=== PATIENT | male | born 1990 | race Caucasian/White ===

== ENCOUNTER 2021-10-04 22:38 | Observation (INO) ==
[2021-10-05] MEDS ORDERED: dexAMETHasone 6 MG in SYRINGE 0 ML IV ONE (00:41)
[2021-10-05] MEDS ORDERED: ACETAMINOPHEN 1,000 MG/100 ML VIAL IV STA (00:41)
[2021-10-05] MEDS ORDERED: SODIUM CHLORIDE 0.9% 1000ML 1,000 ML IV STA (00:41)
[2021-10-05] MEDS ORDERED: ALBUT/IPRATROP 3MG/0.5MG NEB 3 ML VIAL NEB STA (00:41)
[2021-10-05] MEDS ORDERED: DEXAMETHASONE SOD INJ 4 MG/ML VIAL ONE (01:39)
[2021-10-05 01:43] LABS: Mean Corpuscular Hgb Conc 32.9 g/dL (32-36)
[2021-10-05 01:50] LABS: Hematocrit (blood only) 41.9 % (42-52); Hemoglobin 13.8 g/dL (14.0-18.0); Mean Corpuscular Hemoglobin 22.6 pg (25-34); Mean Corpuscular Volume 68.7 fL (80-100); RDW Coefficient of Variation 14.2 % (11.5-14.5); RDW Standard Deviation 35.3 fL (36.4-46.3); White Blood Count 1.73 K/uL (4.8-10.8)
[2021-10-05 02:02] LABS: Alanine Aminotransferase 55 (12-78); Albumin Level 3.4 gm/dl (3.4-5.0); Aspartate Aminotransferase 36 U/L (15-37); BUN Creatinine Ratio 15.4 (10-20); Blood Urea Nitrogen 16 mg/dl (7-18); Calcium 8.3 mg/dl (8.5-10.1); Carbon Dioxide 24 mmol/L (21-32); Chloride 108 mmol/L (98-107); Creatinine Clr Calc Pharmacy 111.8 ml/min; Est GFR (Non-African American) 97.5 ml/min; Glucose 107 mg/dl (70-99); Potassium 3.9 mmol/L (3.5-5.1); Sodium 137 mmol/L (136-145)
[2021-10-05 02:03] LABS: Basophils # (auto) 0.01 K/uL (0-0.2); Basophils % (auto) 0.6 %; Eosinophils # (auto) 0.01 K/uL (0-0.5); Eosinophils % (auto) 0.6 %; Immature Granulocytes # (auto) 0.01 K/uL (0.00-0.02); Immature Granulocytes % (auto) 0.6 %; Lymphocytes # (auto) 0.56 K/uL (1.2-3.4); Lymphocytes % (auto) 32.4 %; Monocytes # (auto) 0.31 K/uL (0.11-0.59); Monocytes % (auto) 17.9 %; Neutrophils # (auto) 0.83 K/uL (1.4-6.5); Neutrophils % (auto) 47.9 %; Platelet Count 111 K/uL (130-400)
[2021-10-05 02:04] LABS: Microcytosis Present; Platelet Estimate Decreased (Normal)
[2021-10-05 02:07] LABS: Alkaline Phosphatase 66 U/L (45-117); Bilirubin,Total 0.2 mg/dl (0.2-1); C Reactive Protein 2.52 mg/dl (0-0.29); Globulin 3.5 gm/dl (2.5-4.0); Total Protein 6.9 gm/dl (6.4-8.2); Troponin I < 0.015 ng/ml (0-0.045)
[2021-10-05] MEDS ORDERED: SODIUM CHLORIDE 0.9% 1000ML 1,000 ML IV SCH ×2 (03:30→07:02)
[2021-10-05 04:12] LABS: Influenza A virus by PCR Negative (Neg); Influenza B virus by PCR Negative (Neg); RSV by PCR Negative (Neg)
[2021-10-05 04:27] LABS: SARS CoV2 RNA(COVID-19) InHosp POSITIVE (Negative)
[2021-10-05] MEDS ORDERED: LEVALBUTEROL HCL 1.25 MG/3 ML NEB NEB PRN (07:02)
[2021-10-05] MEDS ORDERED: guaiFENesin/CODEINE 100MG/10MG 5ML UDC PO PRN (07:02)
[2021-10-05] MEDS ORDERED: ACETAMINOPHEN 325 MG TAB PO PRN (07:02)
--- NOTE | 2021-10-05 07:47 | XRay Report ---
XR chest 1V portable HISTORY: Covid positive. Fever COMPARISON: Chest 11/02/2015. FINDINGS: No pneumothorax. No pleural effusions. The heart is normal in size. There are low lung volu mes. Patchy bilateral airspace opacities, left greater the right consistent with a multifocal viral p neumonia. IMPRESSION: Bilateral patchy airspace opacities, left greater than right consistent with a multifocal viral pneum onia. ACT 112: Negative or not required by law. Electronically signed by: Moreno Porras M.D. 10/05/2021 7:45 AM
[2021-10-05] MEDS: ENOXAPARIN INJ 40 MG/0.4 ML SYR SQ SCH (08:08)
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
[2021-10-05 08:30] LABS: Appearance Urine Clear (Clear); Bilirubin Urine Negative (Negative); Blood Urine Negative (Negative); Color Urine Yellow; Glucose Urine UA Trace (Negative); Ketones Urine Negative (Negative); Leukocyte Esterase Urine Negative (Negative); Nitrite Urine Negative (Negative); Protein Urine Negative (Negative); Specific Gravity Urine 1.019 (1.000-1.030); Urobilinogen Urine Negative (Negative); pH Urine 5.5 (4.5-7.5)
[2021-10-05] MEDS: BENZONATATE 100 MG CAPSULE PO SCH ×3 (09:30→23:41)
[2021-10-05 12:54] LABS: Hematocrit (blood only) 42.6 % (42-52); Hemoglobin 13.8 g/dL (14.0-18.0); Mean Corpuscular Hemoglobin 22.3 pg (25-34); Mean Corpuscular Hgb Conc 32.4 g/dL (32-36); Mean Corpuscular Volume 68.8 fL (80-100); Mean Platelet Volume 10.9 fL (7.4-10.4); Platelet Count 129 K/uL (130-400); RDW Coefficient of Variation 14.4 % (11.5-14.5); RDW Standard Deviation 35.8 fL (36.4-46.3); Red Blood Count 6.19 M/uL (4.7-6.1)
[2021-10-05 13:16] LABS: Lymphocytes # (auto) 0.28 K/uL (1.2-3.4); Lymphocytes % (auto) 25.5 %; Microcytosis Present; Monocytes # (auto) 0.18 K/uL (0.11-0.59); Monocytes % (auto) 16.4 %; Neutrophils # (auto) 0.64 K/uL (1.4-6.5); Neutrophils % (auto) 58.1 %
[2021-10-05 13:27] LABS: BUN Creatinine Ratio 13.3 (10-20); Calcium 8.2 mg/dl (8.5-10.1); Creatinine Clr Calc Pharmacy 128.1 ml/min; Est GFR (African American) 132.1 ml/min; Est GFR (Non-African American) 113.9 ml/min; Potassium 4.9 mmol/L (3.5-5.1)
[2021-10-05] MEDS ORDERED: CONSULT PHARMACY STA ×2 (16:25→16:58)
[2021-10-05] MEDS: CEFEPIME 2,000 MG in SYRINGE 0 ML IV SCH (17:34)
[2021-10-05] MEDS ORDERED: VANCOMYCIN CONSULT ACTIVE PRN (17:40)
[2021-10-05] MEDS ORDERED: VANCOMYCIN HCL 2,000 MG in SODIUM CHLORIDE 0.9% 500 ML IV ONE (17:45)
--- NOTE | 2021-10-05 17:59 | Hospitalist Progress Note ---
Date of Service October 05, 2021 Assessment & Plan (1) Pneumonia due to COVID-19 virus: Plan: Persistent fevers, elevated procalcitonin. Febrile neutropenia. Uncertain source of superimposed bacterial infection but this is a possibility. Cover empirically with broad-spectrum antibiotics including vancomycin and cefepime started today. We will hold on steroid therapy as patient is not hypoxic at this time. No indication for remdesivir therapy at this time. (2) Pancytopenia: Plan: Febrile neutropenia, slight anemia and thrombocytopenia present. Broad-spectrum antibiotics as above. Rule out major rickettsial illness etiologies including Lyme and Anaplasma. Patient is not a heavy alcohol user. May be caused by SARS-CoV-2 virus. Continue supportive therapies and monitor CBC. (3) DVT prophylaxis: Plan: Lovenox Full code Disposition-to home when medically stable [facility] and Anticipated Discharge Date Admission Date: October 05, 2021 Subjective 31-year-old man with febrile neutropenia positive for Covid, symptoms since 6 days ago. Was out hunting with father and brother who are also sick. Patient denies any GI upset, tolerating oral food. Intermittent high fevers, reported at home to be 104 Fahrenheit. He has been taking [id number] Motrin and Tylenol with some relief. Full skin exam performed with no evidence of rash or bites anywhere. He does not recall any bites while in the [place]. He denies any alcohol use. Coughing present with some shortness of breath. Review of Systems Review of Systems: All systems reviewed and negative except as indicated above. Physical Exam Physical Exam: CONSTITUTIONAL: WNWD, vitals as above, generally ill-appearing EYES: normal conjunctivae, no scleral icterus ENT: external ear and nose normal, MMM NECK: trachea midline RESPIRATORY: coarse rhonchi bilaterally, no rales or wheezes, normal respiratory effort, not requiring oxygen. CARDIOVASCULAR: regular rate and rhythm, S1 and 2 heard without murmurs, gallops or rubs, no JVD, no peripheral edema CHEST: inspection of chest was normal GASTROINTESTINAL: soft, nontender, no guarding, ND MUSCULOSKELETAL: strength 5/5 throughout, head is normocephalic and atraumatic SKIN: warm and dry, no rashes or bites NEUROLOGIC: CN 2-12 grossly intact, no sensory deficit, normal cognition, normal speech, no tremor, no gross focal deficits. PSYCHIATRIC: alert cooperative and oriented to person, place and time. Results & Data Results & Data ([facility]) Vital Signs (Past 12 Hours) Vital Signs Temp Pulse Pulse Resp BP BP Pulse Ox 10/05/21 15:38 37.8 C H 88 18 170/86 H 92 10/05/21 14:44 86 16 94 10/05/21 13:55 38 C H 18 157/89 H 93 10/05/21 08:15 36.8 C 10/05/21 07:02 72 20 126/80 97 10/05/21 07:00 20 126/80 96 10/05/21 06:37 60 22 122/74 94 Laboratory Results Short CBC 10/05/21 10/05/21 Range/Units 01:30 12:47 WBC 1.73 L 1.10 L (4.8-10.8) K/uL Hgb 13.8 L 13.8 L (14.0-18.0) g/dL Hct 41.9 L 42.6 (42-52) % Plt Count 111 L 129 L (130-400) K/uL BMP 10/05/21 10/05/21 01:30 12:47 Sodium 137 141 Potassium 3.9 4.9 D Chloride 108 H 111 H Carbon Dioxide 24 26 BUN 16 12 Creatinine 1.02 0.89 Glucose 107 H 135 H Calcium 8.3 L 8.2 L Cardiac Enzymes 10/05/21 Range/Units 01:30 Troponin I < 0.015 (0-0.045) ng/ml Liver Function 10/05/21 Range/Units 01:30 Total Bilirubin 0.2 (0.2-1) mg/dl AST 36 (15-37) U/L ALT 55 (12-78) Alkaline Phosphatase 66 (45-117) U/L Albumin 3.4 (3.4-5.0) gm/dl Urine 10/05/21 Range/Units 08:16 Urine Color Yellow Urine Appearance Clear (Clear) Urine pH 5.5 (4.5-7.5) Ur Specific Bedias 1.019 (1.000-1.030) Urine Protein Negative (Negative) Urine Glucose (UA) Trace H (Negative) Diagnostic Findings Chest X-Ray 10/05/21 00:41 XR chest 1V portable HISTORY: Covid positive. Fever COMPARISON: Chest 11/02/2015. FINDINGS: No pneumothorax. No pleural effusions. The heart is normal in size. There are low lung volumes. Patchy bilateral airspace opacities, left greater the right consistent with a multifocal viral pneumonia. IMPRESSION: Bilateral patchy airspace opacities, left greater than right consistent with a multifocal viral pneumonia. ACT 112: Negative or not required by law. Electronically signed by: Moreno Porras M.D. 10/05/2021 7:45 AM Medications Administered Current Inpatient Medications Acetaminophen (Acetaminophen 325 Mg Tab) 650 mg PO Q4H PRN PRN Reason: pain/fever Stop: 11/04/21 07:01 Last Admin: 10/05/21 13:25 Dose: 650 mg Documented by: Benzonatate (Benzonatate 100 Mg Capsule) 100 mg PO TID [facility] Stop: 11/04/21 08:59 Last Admin: 10/05/21 14:13 Dose: 100 mg Documented by: Enoxaparin Sodium (Enoxaparin Inj 40 Mg/0.4 Ml Syr) 40 mg SQ Q24H [facility] Stop: 11/04/21 07:59 Last Admin: 10/05/21 08:08 Dose: 40 mg Documented by: Guaifenesin/Codeine Phosphate (Guaifenesin/Codeine 100mg/10mg 5ml Udc) 5 ml PO Q6H PRN PRN Reason: Cough Stop: 11/04/21 07:01 Last Admin: 10/05/21 13:25 Dose: 5 ml Documented by: Dexamethasone 6 mg/ Syringe 1.5 mls @ 1 mls/min IV Q24H [facility] Stop: 11/04/21 20:59 Cefepime HCl 2,000 mg/ Syringe 20 mls @ 5 mls/min IV Q8H [facility]; Protocol Stop: 10/12/21 16:59 Last Admin: 10/05/21 17:34 Dose: 5 mls/min Documented by: Vancomycin HCl 2,000 mg/ (Sodium Chloride) 540 mls @ 200 mls/hr IV ONE ONE Stop: 10/05/21 20:26 Last Admin: 10/05/21 17:56 Dose: 200 mls/hr Documented by: Levalbuterol HCl (Levalbuterol Hcl 1.25 Mg/3 Ml Neb) 1.25 mg NEB Q4H PRN PRN Reason: Shortness Of Breath Or Wheezing Stop: 11/04/21 07:01 Last Admin: 10/05/21 14:44 Dose: 1.25 mg Documented by: Miscellaneous Information (Vancomycin Consult Active) 1 ea N/A UD PRN PRN Reason: Consult Stop: 11/04/21 17:39
[2021-10-05] MEDS ORDERED: D5W AND 1/2NSS 1,000 ML IV SCH (19:30)
[2021-10-05] MEDS ORDERED: dexAMETHasone 6 MG in SYRINGE 0 ML IV SCH (21:00)
[2021-10-05] MEDS: IBUPROFEN 800 MG TAB PO SCH (21:10)
[2021-10-05 21:38] LABS: Lyme Ab IgG w/WB Rflx Negative (Negative); Lyme Ab IgM w/WB Rflx Negative (Negative)
[2021-10-05] MEDS: ACETAMINOPHEN 500 MG TAB PO SCH (23:41)
[2021-10-06] MEDS: CEFEPIME 2,000 MG in SYRINGE 0 ML IV SCH ×3 (01:34→17:21)
[2021-10-06] MEDS: IBUPROFEN 800 MG TAB PO SCH ×3 (03:51→17:21)
--- NOTE | 2021-10-06 04:51 | Emergency Department Note ---
Impression & Plan Pneumonia due to COVID-19 virus, Pancytopenia ED Provider Note CHIEF COMPLAINT: Covid positive, fevers, chills, body aches HISTORY OF PRESENT ILLNESS: This 31-year-old male patient presents to the emergency department with complaints of body aches, chills cough. Patient states he is known to be Covid positive as he tested at the local [facility] several days ago. He thinks his symptoms started about a week ago. He is not Covid vaccinated. Patient has been using Tylenol for his fevers. He has had a decreased p.o. intake due to nausea. He denies any significant chest pain but does admit to mild headache. REVIEW OF SYSTEMS: A review of systems was performed with positives and pert inent negatives listed in the history of present illness. 10 systems were reviewed and are otherwise negative. ALLERGIES: see below MEDICATIONS: see below PMH: see below SOCIAL HISTORY: see below DDx: Viral syndrome, COVID, otitis, pharyngitis, pneumonia, influenza, meningitis, urinary tract infection, sepsis, bacteremia, as well as other pathologies. PHYSICAL EXAM: Vital signs reviewed. General: Somewhat ill-appearing 31-year-old male, in no significant distress. HEENT: No scleral icterus, PERRLA, neck supple. Dry mucous membranes Cardiovascular: Regular rate and rhythm, no extra sounds. Pulmonary: Clear to auscultation bilaterally, normal work of breathing. Abdomen: Soft, nontender, nondistended, positive bowel sounds. Musculoskeletal: Atraumatic, no peripheral edema. Neurologic: Patient awake alert and oriented x 3, speech is clear, no meningeal signs Skin: Warm, diaphoretic, no rash EMERGENCY DEPARTMENT COURSE/MDM: This patient was evaluated and appeared to be in no significant distress. IV access was obtained and laboratory work was drawn. Patient was placed on a ekg monitor and noted to be in normal sinus rhythm. Patient was hydrated with normal saline solution. Patient was given 1 g of Tylenol IV, DuoNeb treatment and 6 mg of IV dexamethasone. Chest x-ray is consistent with a viral pneumonitis. Laboratory work reveals a leukopenia, neutropenia, mild thrombocytopenia and anemia. Repeat Covid swab was performed as previous results were not obtainable. Study confirms Covid positive status. Given the pancytopenia, patient was discussed with the hospitalist service who will evaluate for further management. Patient is aware and agrees. MONITORING: An order for cardiac monitoring was placed and the patient is noted to be in a normal sinus rhythm at 78 beats per minute. RADIOLOGY: see below DISPOSITION:home Past Med/Surg History Social History Smoking Status: Never smoker Hx Alcohol Use: Yes Alcohol type: beer Hx Substance Use: No Communication Ability: Effective Beliefs That Will Affect Care: None marital status: Current Living Situation: Spouse Feels Safe at Home: Yes Safety Concerns: Feels Safe At This Time Assistive Devices: Glasses Allergies Allergies Allergy/AdvReac Type Severity Reaction Status Date / Time No Known Allergies Allergy Unverified 10/05/21 00:06 Home Meds Home Medications Medication Instructions Recorded Confirmed No Known Home Medications 10/05/21 10/05/21 Results & Data (ED) Home Medications Current Medication List: was personally reviewed by me Laboratory Data Attestation: I reviewed the patient's lab results. Result diagrams: 10/06/21 06:46 10/06/21 06:46 Lab Results 10/05/21 10/05/21 10/05/21 Range/Units 01:30 01:30 01:30 WBC 1.73 L (4.8-10.8) K/uL RBC 6.10 (4.7-6.1) M/uL Hgb 13.8 L (14.0-18.0) g/dL Hct 41.9 L (42-52) % MCV 68.7 L (80-100) fL MCH 22.6 L (25-34) pg MCHC 32.9 (32-36) g/dL RDW Std Deviation 35.3 L (36.4-46.3) fL RDW Coeff of Ez 14.2 (11.5-14.5) % Plt Count 111 L (130-400) K/uL Immature Gran % (Auto) 0.6 % Neut % (Auto) 47.9 % Lymph % (Auto) 32.4 % Med[place] % (Auto) 17.9 % Eos % (Auto) 0.6 % Baso % (Auto) 0.6 % Neut # (Auto) 0.83 L* (1.4-6.5) K/uL Lymph # (Auto) 0.56 L (1.2-3.4) K/uL [place] # (Auto) 0.31 (0.11-0.59) K/uL Eos # (Auto) 0.01 (0-0.5) K/uL Baso # (Auto) 0.01 (0-0.2) K/uL Immature Gran # (Auto) 0.01 (0.00-0.02) K/uL Platelet Estimate Decreased L (Normal) Microcytosis Present Sodium 137 (136-145) mmol/L Potassium 3.9 (3.5-5.1) mmol/L Chloride 108 H (98-107) mmol/L Carbon Dioxide 24 (21-32) mmol/L Anion Gap 5.0 (3-11) BUN 16 (7-18) mg/dl Creatinine 1.02 (0.6-1.4) mg/dl Est Cr Clr Drug Dosing 111.8 ml/min Est GFR ( Amer) 113.0 ml/min Est GFR (Non-Af Amer) 97.5 ml/min BUN/Creatinine Ratio 15.4 (10-20) Glucose 107 H (70-99) mg/dl Lactate 0.7 (0.4-2.0) mmol/L Calcium 8.3 L (8.5-10.1) mg/dl Total Bilirubin 0.2 (0.2-1) mg/dl AST 36 (15-37) U/L ALT 55 (12-78) Alkaline Phosphatase 66 (45-117) U/L Troponin I < 0.015 (0-0.045) ng/ml C-Reactive Protein 2.52 H (0-0.29) mg/dl Total Protein 6.9 (6.4-8.2) gm/dl Albumin 3.4 (3.4-5.0) gm/dl Globulin 3.5 (2.5-4.0) gm/dl Albumin/Globulin Ratio 1.0 (0.9-2) Procalcitonin (0-0.5) ng/ml Lyme Disease IgG Ab (Negative) Lyme Disease IgM Ab (Negative) SARS-CoV-2 (PCR) (Negative) Influenza Type A (PCR) (Neg) Influenza Type B (PCR) (Neg) RSV (RT-PCR) (Neg) 10/05/21 10/05/21 10/05/21 Range/Units 01:30 01:30 03:18 WBC (4.8-10.8) K/uL RBC (4.7-6.1) M/uL Hgb (14.0-18.0) g/dL Hct (42-52) % MCV (80-100) fL MCH (25-34) pg MCHC (32-36) g/dL RDW Std Deviation (36.4-46.3) fL RDW Coeff of Ez (11.5-14.5) % Plt Count (130-400) K/uL Immature Gran % (Auto) % Neut % (Auto) % Lymph % (Auto) % Med[place] % (Auto) % Eos % (Auto) % Baso % (Auto) % Neut # (Auto) (1.4-6.5) K/uL Lymph # (Auto) (1.2-3.4) K/uL [place] # (Auto) (0.11-0.59) K/uL Eos # (Auto) (0-0.5) K/uL Baso # (Auto) (0-0.2) K/uL Immature Gran # (Auto) (0.00-0.02) K/uL Platelet Estimate (Normal) Microcytosis Sodium (136-145) mmol/L Potassium (3.5-5.1) mmol/L Chloride (98-107) mmol/L Carbon Dioxide (21-32) mmol/L Anion Gap (3-11) BUN (7-18) mg/dl Creatinine (0.6-1.4) mg/dl Est Cr Clr Drug Dosing ml/min Est GFR ( Amer) ml/min Est GFR (Non-Af Amer) ml/min BUN/Creatinine Ratio (10-20) Glucose (70-99) mg/dl Lactate (0.4-2.0) mmol/L Calcium (8.5-10.1) mg/dl Total Bilirubin (0.2-1) mg/dl AST (15-37) U/L ALT (12-78) Alkaline Phosphatase (45-117) U/L Troponin I (0-0.045) ng/ml C-Reactive Protein (0-0.29) mg/dl Total Protein (6.4-8.2) gm/dl Albumin (3.4-5.0) gm/dl Globulin (2.5-4.0) gm/dl Albumin/Globulin Ratio (0.9-2) Procalcitonin 0.17 (0-0.5) ng/ml Lyme Disease IgG Ab Negative (Negative) Lyme Disease IgM Ab Negative (Negative) SARS-CoV-2 (PCR) POSITIVE A* (Negative) Influenza Type A (PCR) Negative (Neg) Influenza Type B (PCR) Negative (Neg) RSV (RT-PCR) Negative (Neg) Administered Medications Acetaminophen (Acetaminophen 500 Mg Tab) 1,000 mg PO Q8H [facility] Stop: 11/04/21 21:59 Last Admin: 10/06/21 14:33 Dose: 1,000 mg Documented by: [id number] Admin: 10/06/21 06:15 Dose: 1,000 mg Documented by: [id number] Admin: 10/05/21 23:41 Dose: 1,000 mg Documented by: [id number] Benzonatate (Benzonatate 100 Mg Capsule) 100 mg PO TID [facility] Stop: 11/04/21 08:59 Last Admin: 10/06/21 13:34 Dose: 100 mg Documented by: [id number] Admin: 10/06/21 08:07 Dose: 100 mg Documented by: [id number] Admin: 10/05/21 23:41 Dose: 100 mg Documented by: [id number] Admin: 10/05/21 14:13 Dose: 100 mg Documented by: [id number] Admin: 10/05/21 09:30 Dose: 100 mg Documented by: [id number] Enoxaparin Sodium (Enoxaparin Inj 40 Mg/0.4 Ml Syr) 40 mg SQ Q24H [facility] Stop: 11/04/21 07:59 Last Admin: 10/06/21 08:07 Dose: 40 mg Documented by: [id number] Admin: 10/05/21 08:08 Dose: 40 mg Documented by: [id number] Guaifenesin/Codeine Phosphate (Guaifenesin/Codeine 100mg/10mg 5ml Udc) 10 ml PO Q6H PRN PRN Reason: Cough Stop: 11/04/21 07:01 Last Admin: 10/06/21 20:08 Dose: 10 ml Documented by: [id number] Admin: 10/06/21 10:49 Dose: 10 ml Documented by: [id number] Cefepime HCl 2,000 mg/ Syringe 20 mls @ 5 mls/min IV Q8H [facility]; Protocol Stop: 10/12/21 16:59 Last Admin: 10/06/21 17:21 Dose: 5 mls/min Documented by: [id number] Admin: 10/06/21 08:07 Dose: 5 mls/min Documented by: [id number] Admin: 10/06/21 01:34 Dose: 5 mls/min Documented by: [id number] Admin: 10/05/21 17:34 Dose: 5 mls/min Documented by: [id number] Vancomycin HCl 1,500 mg/ (Sodium Chloride) 530 mls @ 200 mls/hr IV Q12H [facility]; Protocol Stop: 10/13/21 04:59 Last Infusion: 10/06/21 19:52 Dose: 0 mls/hr Documented by: [id number] Admin: 10/06/21 17:13 Dose: 200 mls/hr Documented by: [id number] Infusion: 10/06/21 09:15 Dose: 0 mls/hr Documented by: [id number] Admin: 10/06/21 06:18 Dose: 200 mls/hr Documented by: [id number] Ibuprofen (Ibuprofen 800 Mg Tab) 800 mg PO Q8 [facility] Stop: 11/05/21 17:59 Last Admin: 10/06/21 17:21 Dose: 800 mg Documented by: [id number] Levalbuterol HCl (Levalbuterol Hcl 1.25 Mg/3 Ml Neb) 1.25 mg NEB Q4H PRN PRN Reason: Shortness Of Breath Or Wheezing Stop: 11/04/21 07:01 Last Admin: 10/05/21 14:44 Dose: 1.25 mg Documented by: [id number] Discontinued Medications Acetaminophen (Acetaminophen 325 Mg Tab) 650 mg PO Q4H PRN PRN Reason: pain/fever Stop: 11/04/21 07:01 Last Admin: 10/05/21 13:25 Dose: 650 mg Documented by: [id number] Albuterol (Albut/Ipratrop 3mg/0.5mg Neb 3 Ml Vial) 3 ml NEB NOW STA Stop: 10/05/21 00:42 Last Admin: 10/05/21 01:42 Dose: 3 ml Documented by: [id number] Dexamethasone (Dexamethasone Sod Inj 4 Mg/Ml Vial) Confirm Administered Dose 8 mg .ROUTE .STK-MED ONE Stop: 10/05/21 01:40 Last Admin: 10/05/21 01:42 Dose: Not Given Documented by: [id number] Guaifenesin/Codeine Phosphate (Guaifenesin/Codeine 100mg/10mg 5ml Udc) 5 ml PO Q6H PRN PRN Reason: Cough Stop: 11/04/21 07:01 Last Admin: 10/05/21 13:25 Dose: 5 ml Documented by: [id number] Guaifenesin/Codeine Phosphate (Guaifenesin/Codeine 200mg/20mg 10ml Udc) 10 ml PO ONE STA Stop: 10/05/21 19:16 Last Admin: 10/05/21 21:09 Dose: 10 ml Documented by: [id number] Sodium Chloride (Nss 1000ml) 1,000 mls @ 999 mls/hr IV .Q1H1M STA Stop: 10/05/21 01:41 Last Infusion: 10/05/21 02:45 Dose: 0 mls/hr Documented by: [id number] Admin: 10/05/21 01:42 Dose: 999 mls/hr Documented by: [id number] Acetaminophen (Ofirmev) 1,000 mg in 100 mls @ 400 mls/hr IV NOW STA Stop: 10/05/21 00:55 Last Infusion: 10/05/21 02:21 Dose: 0 mls/hr Documented by: [id number] Admin: 10/05/21 01:42 Dose: 400 mls/hr Documented by: [id number] Dexamethasone 6 mg/ Syringe 1.5 mls @ 1 mls/min IV ONE ONE Stop: 10/05/21 00:42 Last Admin: 10/05/21 01:41 Dose: 1 mls/min Documented by: [id number] Sodium Chloride (Nss 1000ml) 1,000 mls @ 150 mls/hr IV .Q6H40M [facility] Stop: 11/04/21 03:29 Last Infusion: 10/05/21 11:51 Dose: 0 mls/hr Documented by: [id number] Admin: 10/05/21 05:17 Dose: 150 mls/hr Documented by: [id number] Sodium Chloride (Nss 1000ml) 1,000 mls @ 100 mls/hr IV .Q10H [facility] Stop: 10/05/21 17:01 Last Infusion: 10/05/21 11:46 Dose: 0 mls/hr Documented by: [id number] Admin: 10/05/21 08:25 Dose: 100 mls/hr Documented by: [id number] Vancomycin HCl 2,000 mg/ (Sodium Chloride) 540 mls @ 200 mls/hr IV ONE ONE Stop: 10/05/21 20:26 Last Infusion: 10/05/21 21:12 Dose: 0 mls/hr Documented by: [id number] Admin: 10/05/21 17:56 Dose: 200 mls/hr Documented by: [id number] Dextrose/Sodium Chloride (D5w And 1/2nss) 1,000 mls @ 125 mls/hr IV .Q8H [facility] Stop: 10/06/21 03:29 Last Infusion: 10/06/21 04:06 Dose: 0 mls/hr Documented by: [id number] Admin: 10/05/21 21:12 Dose: 125 mls/hr Documented by: [id number] Ibuprofen (Ibuprofen 800 Mg Tab) 800 mg PO Q8H [facility] Stop: 11/04/21 19:29 Last Admin: 10/06/21 12:12 Dose: 800 mg Documented by: [id number] Admin: 10/06/21 03:51 Dose: 800 mg Documented by: [id number] Admin: 10/05/21 21:10 Dose: 800 mg Documented by: [id number] Imaging Data Radiologist's Impression: Chest X-Ray 10/05/21 00:41 XR chest 1V portable HISTORY: Covid positive. Fever COMPARISON: Chest 11/02/2015. FINDINGS: No pneumothorax. No pleural effusions. The heart is normal in size. There are low lung volumes. Patchy bilateral airspace opacities, left greater the right consistent with a multifocal viral pneumonia. IMPRESSION: Bilateral patchy airspace opacities, left greater than right consistent with a multifocal viral pneumonia. ACT 112: Negative or not required by law. Electronically signed by: Moreno Porras M.D. 10/05/2021 7:45 AM Blood Pressure Blood Pressure Findings: Normal blood pressure Blood Pressure Disposition: did not require urgent referral Discharge Plan Visit Data Chief Complaint: Fever Stated Complaint: COVID+, FEVER, COUGH, LOW PULSE OX ED Provider: Alisha Kebede Discharge Problem: Pneumonia due to COVID-19 virus, Pancytopenia Patient Disposition: Admitted As Inpatient Discharge Instructions Interventions: ED Discharge Assessment Last Done: 10/05/21 21:21
[2021-10-06 06:10] LABS: Estimated Average Glucose 131 mg/dl; Hemoglobin A1C 6.2 % (4.5-5.6)
[2021-10-06] MEDS: ACETAMINOPHEN 500 MG TAB PO SCH ×3 (06:15→21:41)
[2021-10-06] MEDS: VANCOMYCIN HCL 1,500 MG in SODIUM CHLORIDE 0.9% 500 ML IV SCH ×2 (06:18→17:13)
[2021-10-06 07:01] LABS: Basophils # (auto) 0.01 K/uL (0-0.2); Basophils % (auto) 0.3 %; Eosinophils # (auto) 0.01 K/uL (0-0.5); Eosinophils % (auto) 0.3 %; Hemoglobin 13.1 g/dL (14.0-18.0); Immature Granulocytes # (auto) 0.01 K/uL (0.00-0.02); Immature Granulocytes % (auto) 0.3 %; Lymphocytes # (auto) 0.64 K/uL (1.2-3.4); Lymphocytes % (auto) 18.4 %; Mean Corpuscular Hemoglobin 22.5 pg (25-34); Mean Corpuscular Hgb Conc 32.8 g/dL (32-36); Mean Corpuscular Volume 68.8 fL (80-100); Mean Platelet Volume 10.6 fL (7.4-10.4); Monocytes # (auto) 0.43 K/uL (0.11-0.59); Monocytes % (auto) 12.4 %; Neutrophils # (auto) 2.38 K/uL (1.4-6.5); Neutrophils % (auto) 68.3 %; Platelet Count 146 K/uL (130-400); RDW Coefficient of Variation 14.4 % (11.5-14.5); RDW Standard Deviation 36.1 fL (36.4-46.3); Red Blood Count 5.81 M/uL (4.7-6.1); White Blood Count 3.48 K/uL (4.8-10.8)
[2021-10-06 07:41] LABS: Microcytosis Present
[2021-10-06] MEDS: ENOXAPARIN INJ 40 MG/0.4 ML SYR SQ SCH (08:07)
[2021-10-06] MEDS: BENZONATATE 100 MG CAPSULE PO SCH ×3 (08:07→21:41)
[2021-10-06 08:10] LABS: BUN Creatinine Ratio 13.4 (10-20); Calcium 7.8 mg/dl (8.5-10.1); Creatinine Clr Calc Pharmacy 152.4 ml/min; Est GFR (African American) 136.6 ml/min; Est GFR (Non-African American) 117.8 ml/min; Magnesium 2.5 mg/dl (1.8-2.4)
--- NOTE | 2021-10-06 08:45 | Pharmacy Report ---
Pharmacy Vanc AUC Short Note - Date of Service October 06, 2021 - Assessment & Plan Assessment 31 year old M receiving IV Vancomycin and Cefepime (not a consult) for treatment of neutropenic fever/COVID pneumonia. Day # 2 of antimicrobial therapy. * No renal impairment noted and no hx MDRO; estimated CrCl >100 mL/min * Estimated pharmacokinetic parameters: * Ke ~0.087/hr, T1/2 ~8 hrs * He received Vancomycin 2000mg (~24mg/kg) IV x 1 as a loading dose yesterday Plan Vancomycin * AUC/KRISTIN is the preferred PK/PD target for vancomycin * AUC guided dosing is effective and associated with decreased risk of nephrotoxicity compared to traditional trough targets * According to [facility], Vancomycin 1500mg (~18mg/kg) IV q12 is predicted to achieve target AUC/KRISTIN of 400-600 mg/L.hr and may be associated with a 13 % risk of nephrotoxicity * Trough level ordered for: 10/07/21 @ 1630 to assess estimated pharmacokinetics; given his young age, he may require a more frequent dosing interval * Ordered MRSA nasal swab to assess for potential de-escalation Pharmacy will continue to follow and will adjust dose/frequency as necessary. Thank you.
[2021-10-06] MEDS: guaiFENesin/CODEINE 100MG/10MG 5ML UDC PO PRN ×2 (10:49→20:08)
--- NOTE | 2021-10-06 15:25 | Hospitalist Progress Note ---
Date of Service October 06, 2021 Assessment & Plan (1) Pneumonia due to COVID-19 virus: Plan: Persistent fevers, elevated procalcitonin. Febrile neutropenia. Uncertain source of superimposed bacterial infection but this is a possibility. Not on COVID specific therapy at this time. Currently on room air Reports symptoms worsen with fever but respond well to tylenol or ibuprofen. Will do the tylenol alternating with ibuprofen for fevers. Consider resending blood cultures if fever persists Continue broad spectrum antibiotics Continue supportive therapies (2) Pancytopenia: Plan: Febrile neutropenia, slight anemia and thrombocytopenia present. Broad-spectrum antibiotics as above. Rule out major rickettsial illness etiologies including Lyme and Anaplasma. Patient is not a heavy alcohol user. May be caused by SARS-CoV-2 virus. Thrombocytopenia resolved Leukopenia improved today Monitor (3) DVT prophylaxis: Plan: Lovenox Full code Disposition-to home when medically stable Admission and Anticipated Discharge Date Admission Date: October 05, 2021 Subjective Patient seen and examined. Reports fevers, persistent cough. Had headache and nausea earlier this morning. Denies any shortness of breath Reports some chest discomfort usually with coughing. Denies any vomiting, abdominal pain. Reported some diarrhea yesterday. Denied any dysuria, frequency, urgency Physical Exam Constitutional: + well hydrated; no acute distress Eyes: PERRL, conjunctivae normal, anicteric sclerae ENMT: external ear and nose normal, oropharynx normal Respiratory: normal respiratory effort, lungs clear to auscultation Cardiovascular: RRR, no murmur, no edema Gastrointestinal (Abdomen): normal bowel sounds, soft, nontender, no hepatosplenomegaly Musculoskeletal: no cyanosis or clubbing, extremities motor strength 5/5 Neurologic: PERRL, EOMI, accommodation nl, no face palsy, no dysarthria Psychiatric: A+Ox3, euthymic affect Results & Data Results & Data ([facility]) Vital Signs (Past 12 Hours) Vital Signs Temp Pulse Resp BP Pulse Ox 10/06/21 08:13 36.8 C 71 18 123/85 93 Laboratory Results Abnormal lab results 10/05/21 10/05/21 10/06/21 Range/Units 12:51 19:59 06:46 WBC 3.48 L (4.8-10.8) K/uL Hgb 13.1 L (14.0-18.0) g/dL Hct 40.0 L (42-52) % MCV 68.8 L (80-100) fL MCH 22.5 L (25-34) pg RDW Std Deviation 36.1 L (36.4-46.3) fL MPV 10.6 H (7.4-10.4) fL Lymph # (Auto) 0.64 L (1.2-3.4) K/uL Chloride (98-107) mmol/L Glucose (70-99) mg/dl Hemoglobin A1c 6.2 H (4.5-5.6) % Calcium (8.5-10.1) mg/dl Magnesium (1.8-2.4) mg/dl C-Reactive Protein 2.04 H (0-0.29) mg/dl 10/06/21 Range/Units 06:46 WBC (4.8-10.8) K/uL Hgb (14.0-18.0) g/dL Hct (42-52) % MCV (80-100) fL MCH (25-34) pg RDW Std Deviation (36.4-46.3) fL MPV (7.4-10.4) fL Lymph # (Auto) (1.2-3.4) K/uL Chloride 111 H (98-107) mmol/L Glucose 108 H (70-99) mg/dl Hemoglobin A1c (4.5-5.6) % Calcium 7.8 L (8.5-10.1) mg/dl Magnesium 2.5 H (1.8-2.4) mg/dl C-Reactive Protein (0-0.29) mg/dl
[2021-10-07] MEDS: CEFEPIME 2,000 MG in SYRINGE 0 ML IV SCH ×2 (00:56→08:21)
[2021-10-07] MEDS: IBUPROFEN 800 MG TAB PO SCH ×3 (03:26→21:50)
[2021-10-07] MEDS: guaiFENesin/CODEINE 100MG/10MG 5ML UDC PO PRN ×2 (04:17→22:44)
[2021-10-07] MEDS: VANCOMYCIN HCL 1,500 MG in SODIUM CHLORIDE 0.9% 500 ML IV SCH (05:09)
[2021-10-07] MEDS: ACETAMINOPHEN 500 MG TAB PO SCH ×4 (05:39→23:40)
[2021-10-07 07:25] LABS: Hematocrit (blood only) 39.4 % (42-52); Hemoglobin 12.7 g/dL (14.0-18.0); Mean Corpuscular Hemoglobin 22.2 pg (25-34); Mean Corpuscular Hgb Conc 32.2 g/dL (32-36); Mean Platelet Volume 10.2 fL (7.4-10.4); Platelet Count 141 K/uL (130-400); RDW Coefficient of Variation 14.5 % (11.5-14.5); RDW Standard Deviation 36.3 fL (36.4-46.3); Red Blood Count 5.71 M/uL (4.7-6.1); White Blood Count 3.13 K/uL (4.8-10.8)
[2021-10-07 08:02] LABS: BUN Creatinine Ratio 13.3 (10-20); C Reactive Protein 6.4 mg/dl (0-0.29); Calcium 7.9 mg/dl (8.5-10.1); Creatinine Clr Calc Pharmacy 134.4 ml/min; Est GFR (African American) 126.3 ml/min; Potassium 4.2 mmol/L (3.5-5.1)
[2021-10-07] MEDS: BENZONATATE 100 MG CAPSULE PO SCH ×3 (08:21→21:50)
[2021-10-07] MEDS: ENOXAPARIN INJ 40 MG/0.4 ML SYR SQ SCH (08:21)
[2021-10-07] MEDS ORDERED: COUGH DROP (SUGAR FREE) LOZ 24 LOZ/1 BOX BUCCAL ONE (09:10)
--- NOTE | 2021-10-07 14:18 | Hospitalist Progress Note ---
Date of Service October 07, 2021 Assessment & Plan (1) Pneumonia due to COVID-19 virus: Plan: Persistent fevers Febrile neutropenia. Not on COVID specific therapy at this time. Currently on room air Consider resending blood cultures if fever persists Blood cultures negative so far Procal still unremarkable at 0.16. My concern for bacterial infection is low at this time. Fevers likely from COVID Leukopenia improved. Stop antibiotics and monitor (2) Pancytopenia: Plan: Febrile neutropenia, slight anemia and thrombocytopenia present. Patient is not a heavy alcohol user. May be caused by SARS-CoV-2 virus. Lyme test negative. Anaplasmolsis pending Thrombocytopenia resolved Leukopenia improved Monitor (3) DVT prophylaxis: Plan: Lovenox Full code Disposition-to home when medically stable Admission and Anticipated Discharge Date Admission Date: October 05, 2021 Subjective Patient seen and examined. Report last fever was last night but not recorded. Last recorded fever was 10/05/21 at 9;39pm Reports persistent cough. Denies any shortness of breath Reports some chest discomfort usually with coughing. Denies any nausea, vomiting, abdominal pain today No diarrhea so far today Denied any dysuria, frequency, urgency Physical Exam Constitutional: + well hydrated; no acute distress Eyes: PERRL, conjunctivae normal, anicteric sclerae ENMT: external ear and nose normal, oropharynx normal Respiratory: normal respiratory effort, lungs clear to auscultation Cardiovascular: RRR, no murmur, no edema Gastrointestinal (Abdomen): normal bowel sounds, soft, nontender, no hepatosplenomegaly Musculoskeletal: no cyanosis or clubbing, extremities motor strength 5/5 Neurologic: PERRL, EOMI, accommodation nl, no face palsy, no dysarthria Psychiatric: A+Ox3, euthymic affect Results & Data Results & Data ([facility]) Vital Signs (Past 12 Hours) Vital Signs Temp Pulse Resp BP Pulse Ox 10/07/21 07:16 37.3 C 81 18 113/70 91 10/07/21 05:31 85 91 Laboratory Results Abnormal lab results 10/07/21 10/07/21 Range/Units 07:10 07:10 WBC 3.13 L (4.8-10.8) K/uL Hgb 12.7 L (14.0-18.0) g/dL Hct 39.4 L (42-52) % MCV 69.0 L (80-100) fL MCH 22.2 L (25-34) pg RDW Std Deviation 36.3 L (36.4-46.3) fL Chloride 108 H (98-107) mmol/L Calcium 7.9 L (8.5-10.1) mg/dl C-Reactive Protein 6.40 H (0-0.29) mg/dl
[2021-10-07] MEDS ORDERED: VANCOMYCIN TROUGH ONE (16:30)
[2021-10-08] MEDS: guaiFENesin/CODEINE 100MG/10MG 5ML UDC PO PRN (06:00)
[2021-10-08] MEDS: IBUPROFEN 800 MG TAB PO SCH (06:00)
[2021-10-08 06:39] LABS: Hematocrit (blood only) 42.1 % (42-52); Hemoglobin 13.7 g/dL (14.0-18.0); Mean Corpuscular Hemoglobin 22.5 pg (25-34); Mean Corpuscular Hgb Conc 32.5 g/dL (32-36); Mean Platelet Volume 10.7 fL (7.4-10.4); Platelet Count 201 K/uL (130-400); RDW Coefficient of Variation 14.6 % (11.5-14.5); RDW Standard Deviation 36.4 fL (36.4-46.3); White Blood Count 3.17 K/uL (4.8-10.8)
[2021-10-08 07:11] LABS: Calcium 8.7 mg/dl (8.5-10.1); Creatinine Clr Calc Pharmacy 148.8 ml/min; Est GFR (African American) 135.2 ml/min; Est GFR (Non-African American) 116.7 ml/min; Potassium 4.2 mmol/L (3.5-5.1)
[2021-10-08] MEDS: ACETAMINOPHEN 500 MG TAB PO SCH (09:17)
[2021-10-08] MEDS: BENZONATATE 100 MG CAPSULE PO SCH ×2 (09:17→14:01)
[2021-10-08] MEDS: ENOXAPARIN INJ 40 MG/0.4 ML SYR SQ SCH (09:18)
[2021-10-08] MEDS ORDERED: IBUPROFEN 800 MG TAB PO PRN (11:47)
--- NOTE | 2021-10-08 13:54 | Discharge Summary ---
Date of Service October 08, 2021 Admission HPI Per Admitting Provider HISTORY OF PRESENT ILLNESS: 31Y male comes with COVID symptoms. The patient says he is having symptoms since last 1 week. Last Friday, he was diagnosed with COVID. The patient has a lot of cough, on and off high fevers dry cough , not bringing any phlegm. Because of this ongoing cough, he came to the ER and found to have neutropenia, that is why we were called for admission. Saturating okay on room air. Currently, hemodynamically stable, afebrile. Denies headache, no runny nose, no sore throat, no earache. Appetite is okay. No loss of sense of smell or taste. He has some chest pain and he attributes it to his coughing. No nausea, no abdominal pain. Normal bowel and bladder movements. He has some diarrhea on and off. No swelling in the legs currently. Admission Exam Per Admitting Provider PHYSICAL EXAMINATION: GENERAL: The patient is of moderate build, not in acute distress. VITAL SIGNS: Temperature 36.6, pulse 78, respiratory rate 16, blood pressure 120/61, oxygen 94% on room air. HEENT: Pupils equal, round and reactive to light. Oral mucosa moist. NECK: No JVD, no neck masses. CARDIOVASCULAR: S1 and S2 heard. Regular rate and rhythm. No murmur, no gallop. RESPIRATORY SYSTEM: Normal AP diameter. No accessory muscle use. No wheezing, no crackles. ABDOMEN: Soft, bowel sounds are present, nontender, no distention. CENTRAL NERVOUS SYSTEM: Cranial nerves II-XII grossly intact, nonfocal. EXTREMITIES: No edema, no erythema. Principal Diagnosis covid pneumonia febrile neutropenia-resolved pancytopenia-resolved Discharge Exam CONSTITUTIONAL: WNWD, vitals as above, NAD EYES: normal conjunctivae, no scleral icterus ENT: external ear and nose normal, MMM NECK: trachea midline RESPIRATORY: crackles at bases bilaterally, no rales or wheezes, normal respiratory effort, not requiring oxygen. CARDIOVASCULAR: regular rate and rhythm, S1 and 2 heard without murmurs, gallops or rubs, no JVD, no peripheral edema CHEST: inspection of chest was normal GASTROINTESTINAL: soft, nontender, no guarding, ND MUSCULOSKELETAL: strength 5/5 throughout, head is normocephalic and atraumatic SKIN: warm and dry NEUROLOGIC: CN 2-12 grossly intact, no sensory deficit, normal cognition, normal speech, no tremor, no gross focal deficits. PSYCHIATRIC: alert cooperative and oriented to person, place and time. Discharge Data Allergies Allergy/AdvReac Type Severity Reaction Status Date / Time No Known Allergies Allergy Unverified 10/05/21 00:06 Consultations 10/05/21 03:19 ED Decision to Admit Stat Ordered Studies Laboratory Results WBC 3.17 K/uL (4.8-10.8) L 10/08/21 05:33 RBC 6.10 M/uL (4.7-6.1) 10/08/21 05:33 Hgb 13.7 g/dL (14.0-18.0) L 10/08/21 05:33 Hct 42.1 % (42-52) 10/08/21 05:33 MCV 69.0 fL (80-100) L 10/08/21 05:33 MCH 22.5 pg (25-34) L 10/08/21 05:33 MCHC 32.5 g/dL (32-36) 10/08/21 05:33 RDW Std Deviation 36.4 fL (36.4-46.3) 10/08/21 05:33 RDW Coeff of Ez 14.6 % (11.5-14.5) H 10/08/21 05:33 Plt Count 201 K/uL (130-400) 10/08/21 05:33 MPV 10.7 fL (7.4-10.4) H 10/08/21 05:33 Immature Gran % (Auto) 0.3 % 10/06/21 06:46 Neut % (Auto) 68.3 % 10/06/21 06:46 Lymph % (Auto) 18.4 % 10/06/21 06:46 Stokes % (Auto) 12.4 % 10/06/21 06:46 Eos % (Auto) 0.3 % 10/06/21 06:46 Baso % (Auto) 0.3 % 10/06/21 06:46 Neut # (Auto) 2.38 K/uL (1.4-6.5) 10/06/21 06:46 Lymph # (Auto) 0.64 K/uL (1.2-3.4) L 10/06/21 06:46 Stokes # (Auto) 0.43 K/uL (0.11-0.59) 10/06/21 06:46 Eos # (Auto) 0.01 K/uL (0-0.5) 10/06/21 06:46 Baso # (Auto) 0.01 K/uL (0-0.2) 10/06/21 06:46 Immature Gran # (Auto) 0.01 K/uL (0.00-0.02) 10/06/21 06:46 Platelet Estimate Decreased (Normal) L 10/05/21 01:30 Microcytosis Present 10/06/21 06:46 Sodium 139 mmol/L (136-145) 10/08/21 05:33 Potassium 4.2 mmol/L (3.5-5.1) 10/08/21 05:33 Chloride 107 mmol/L (98-107) 10/08/21 05:33 Carbon Dioxide 29 mmol/L (21-32) 10/08/21 05:33 Anion Gap 3.0 (3-11) 10/08/21 05:33 BUN 9 mg/dl (7-18) 10/08/21 05:33 Creatinine 0.84 mg/dl (0.6-1.4) 10/08/21 05:33 Est Cr Clr Drug Dosing 148.8 ml/min 10/08/21 05:33 Est GFR ( Amer) 135.2 ml/min 10/08/21 05:33 Est GFR (Non-Af Amer) 116.7 ml/min 10/08/21 05:33 BUN/Creatinine Ratio 11.0 (10-20) 10/08/21 05:33 Glucose 92 mg/dl (70-99) 10/08/21 05:33 Estimat Average Glucose 131 mg/dl 10/05/21 19:59 Hemoglobin A1c 6.2 % (4.5-5.6) H 10/05/21 19:59 Lactate 0.7 mmol/L (0.4-2.0) 10/05/21 01:30 Calcium 8.7 mg/dl (8.5-10.1) 10/08/21 05:33 Magnesium 2.5 mg/dl (1.8-2.4) H 10/06/21 06:46 Total Bilirubin 0.2 mg/dl (0.2-1) 10/05/21 01:30 AST 36 U/L (15-37) 10/05/21 01:30 ALT 55 (12-78) 10/05/21 01:30 Alkaline Phosphatase 66 U/L (45-117) 10/05/21 01:30 Troponin I < 0.015 ng/ml (0-0.045) 10/05/21 01:30 C-Reactive Protein 6.40 mg/dl (0-0.29) H 10/07/21 07:10 Total Protein 6.9 gm/dl (6.4-8.2) 10/05/21 01:30 Albumin 3.4 gm/dl (3.4-5.0) 10/05/21 01:30 Globulin 3.5 gm/dl (2.5-4.0) 10/05/21 01:30 Albumin/Globulin Ratio 1.0 (0.9-2) 10/05/21 01:30 Procalcitonin 0.16 ng/ml (0-0.5) 10/07/21 13:20 Urine Color Yellow 10/05/21 08:16 Urine Appearance Clear (Clear) 10/05/21 08:16 Urine pH 5.5 (4.5-7.5) 10/05/21 08:16 Ur Specific [place] 1.019 (1.000-1.030) 10/05/21 08:16 Urine Protein Negative (Negative) 10/05/21 08:16 Urine Glucose (UA) Trace (Negative) H 10/05/21 08:16 Urine Ketones Negative (Negative) 10/05/21 08:16 Urine Blood Negative (Negative) 10/05/21 08:16 Urine Nitrite Negative (Negative) 10/05/21 08:16 Urine Bilirubin Negative (Negative) 10/05/21 08:16 Urine Urobilinogen Negative (Negative) 10/05/21 08:16 Ur Leukocyte Esterase Negative (Negative) 10/05/21 08:16 Nasal Screen MRSA (PCR) Negative (Negative) 10/06/21 09:25 Lyme Disease IgG Ab Negative (Negative) 10/05/21 01:30 Lyme Disease IgM Ab Negative (Negative) 10/05/21 01:30 SARS-CoV-2 (PCR) POSITIVE (Negative) A* 10/05/21 03:18 Influenza Type A (PCR) Negative (Neg) 10/05/21 03:18 Influenza Type B (PCR) Negative (Neg) 10/05/21 03:18 RSV (RT-PCR) Negative (Neg) 10/05/21 03:18 Impressions Chest X-Ray 10/05/21 00:41 XR chest 1V portable HISTORY: Covid positive. Fever COMPARISON: Chest 11/02/2015. FINDINGS: No pneumothorax. No pleural effusions. The heart is normal in size. There are low lung volumes. Patchy bilateral airspace opacities, left greater the right consistent with a multifocal viral pneumonia. IMPRESSION: Bilateral patchy airspace opacities, left greater than right consistent with a multifocal viral pneumonia. ACT 112: Negative or not required by law. Electronically signed by: Moreno Porras M.D. 10/05/2021 7:45 AM Hospital Course (1) Pneumonia due to COVID-19 virus: Persistent fevers Febrile neutropenia. Dexamethasone initially given on admission but held when he remained on room air Broad-spectrum antibiotics were started with vancomycin and cefepime pending culture results which were negative. Daily CBC improved and he improved clinically. After a few days blood cultures were clear and suspicion of bacterial infection was low. Fevers and neutropenia felt to be secondary to viral SARS-CoV-2 infection Antibiotics were stopped prior to discharge and he was monitored for an additional 24 hours. He did well clinically and did not fever. (2) Pancytopenia: Likely secondary to SARS-CoV-2 virus. Lyme test negative. Anaplasmolsis pending at time of discharge. Thrombocytopenia resolved Leukopenia improved Repeat CBC in outpatient setting was recommended. (3) DVT prophylaxis: Lovenox Full code Disposition-to home when medically stable On day of discharge he was feeling well, ambulating around the room, mentating clearly and tolerating p.o. He had been afebrile for more than 24 hours and was doing well overall. His primary nurse walked him around with a pulse oximeter on his finger and noted no drop in oxygen with ambulation. He was discharged in stable condition with close primary care follow-up recommended. Total Time Total Time Spent Total Time Spent (In Minutes): 60 Discharge Plan Discharge Items Patient Disposition: Home - Self-Care Reason For Visit: FEVER, COUGH Discharge Diagnosis: covid pneumonia febrile neutropenia-resolved pancytopenia-resolved Condition on Discharge: Good Activity: Resume your previous activity Non-emergency contact: Primary Care Provider Call non-emergency contact if: you have any medication questions, your symptoms worsen, your pain is not controlled, your pain is worsening, your pain is unusual for you and you have a fever Follow-up/Referrals: Rakesh Thakur [Primary Care Provider] - Diet: Regular Addtl Attending Provider Instructions: Mr Reyes, You were admitted with fever and low white blood cells likely from your viral pn eumonia. At discharge, you were not fevering for at least 48 hours and your blood counts all improved. As you are not requiring oxygen for your pneumonia, you don't need any steroids or other therapies directed against sars Cov-2 virus at this time. It is recommended that you follow up with your primary care physician in 1-2 weeks to ensure you are still doing well after returning home, repeat a CBC and repeat your chest xray in 4 weeks. It was a pleasure taking care of you! Please call if you have any questions or problems. You can reach a [facility] hospitalist on duty at [facility] 24 hours a day by calling [phone]. Take care of yourself. Rebecca Glaser, DO [facility] Pending Studies at Discharge: Yes Studies:: anaplasma PCR Stand-Alone Forms: My [facility] Medications and DC Order Prescriptions: New codeine-guaifenesin [Guaiatussin AC] 10-100 mg/5 mL Liquid 10 ml PO Q6H PRN (Reason: cough) Qty: 120 RF: 0 Discharge Orders: Discharge Order (Routine); Ordered 10/08/21 Ordered By: Rebecca Rhoades/Other Patient Handouts: Prediabetes, COVID-19 Home Care, 5 Steps for Eating Healthier Admission Data Admit Date/Time: 10/05/21 05:02 Attending Provider: Rebecca Glaser Admit Provider: Pepe Barber Primary Care Provider: Rakesh Thakur Other Providers: Pepe Barber ; Rebecca Glaser Other Interventions: Discharge Summary Assessment (RN) Last Done: 10/08/21 14:27
== END 2021-10-08 15:28 | disposition home or self-care (01) ==
LOC: ED 22:38 → SUATTDRO 10-05 05:02 → EDINP 10-05 05:02 → INTOOBSV 10-05 05:02 → 3W 10-05 21:21
DX: D70.9 Neutropenia, unspecified; D61.818 Other pancytopenia; J12.82 Pneumonia due to coronavirus disease 2019; U07.1 COVID-19

== ENCOUNTER 2025-05-17 07:59 | Observation (INO) ==
--- NOTE | 2025-05-17 08:30 | Emergency Department Note ---
History of Present Illness General Chief complaint: Illness Stated complaint: BACK,SHOULDER,HEAD PAIN,CHILLS,FEVER Time Seen by Provider: 05/17/25 08:05 History of Present Illness Maximum Pain Intensity: 10 This is a 34-year-old male that presents to the emergency department via private vehicle with complaints of "back pain, shoulder pain, headache, chills, fever". The patient denies any pertinent past medical history, surgeries or allergies. The patient does note that Friday evening around 9 PM he felt unwell. He went to bed and woke around 1 AM with sweating, chills and fever. Patient notes generalized low back pain, shoulder pain, headache, chills and a fever since that time intermittently. The patient notes it is overall hard to move noting the lower back pain. It does not radiate into the legs. No leg weakness. No bowel or bladder incontinence. Patient does note some right lower dental pain as well. Patient did take ibuprofen at 9 PM and Tylenol this morning at 6 AM. He slept with a heating pad last night and blanket secondary to the chills and feeling cold. He did have brief episode of diarrhea yesterday but that resolved. No nausea or vomiting. Home Medications Medication Instructions Recorded Confirmed Type Tylenol 0 mg PO DIRECTED PRN Pain 05/17/25 05/17/25 History codeine 10 mg-guaifenesin 100 mg/5 0 ml PO Q6H PRN cough 05/17/25 05/17/25 History mL oral liquid ibuprofen 0 mg PO DIRECTED PRN Pain 05/17/25 05/17/25 History Allergies Allergy/AdvReac Type Severity Reaction Status Date / Time No Known Allergies Allergy Unverified 10/05/21 00:06 Past Med/Surg History Problem List (Updated 05/17/25 @ 22:25 by Montez Kraft PA-C) Back pain (Acute) Hyponatremia (Acute) Leukopenia (Acute) SIRS (systemic inflammatory response syndrome) (Acute) Systemic viral illness Facial cellulitis (Acute) Flu-like symptoms (Acute) Medical History Pancytopenia DVT prophylaxis Pneumonia due to COVID-19 virus Surgical History History of surgery on wrist Social History Smoking Status: Never smoker Second Hand Exposure: No; Do You Dip or Chew Tobacco: No; Hx Alcohol Use: Yes Alcohol type: beer Hx Substance Use: Yes Preferred Language: Bulgarian Communication Ability: Effective 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 Other Information That Helps Us Care for You: No Feels Safe at Home: Yes Safety Concerns: Feels Safe At This Time Assistive Devices: None Review of Systems A total of 10 systems reviewed and were otherwise negative Physical Exam Vital Signs Vital Signs - 24 hr 05/17/25 08:01 05/17/25 08:15 05/17/25 08:15 Temperature 36.6 C 37.1 C Temperature Source Oral Oral Pulse Rate 126 H 109 H Pulse Rate [Apical] 120 H Pulse Rhythm [Apical] Respiratory Rate 18 20 Respiratory Effort / Characteristics Non-Labored Spontaneous Non-Labored Spontaneous Respiratory Depth Normal Normal Respiratory Pattern Regular Blood Pressure 133/78 Blood Pressure [Right Arm] Blood Pressure Mean 96 Blood Pressure Mean [Right Arm] Blood Pressure Position Sitting Pulse Oximetry 95 Oxygen Delivery Method Room Air Sepsis Recent Fever Within 48 Hours Yes Sepsis New/Unexplained Change in Mental Status No Sepsis Action Taken by Nursing No Action Required 05/17/25 09:58 05/17/25 11:00 05/17/25 12:15 Temperature 37.4 C Temperature Source Oral Pulse Rate 92 H Pulse Rate [Apical] 89 Pulse Rhythm [Apical] Respiratory Rate 18 Respiratory Effort / Characteristics Respiratory Depth Respiratory Pattern Blood Pressure Blood Pressure [Right Arm] 132/91 Blood Pressure Mean Blood Pressure Mean [Right Arm] 104 Blood Pressure Position Pulse Oximetry 97 Oxygen Delivery Method Room Air Sepsis Recent Fever Within 48 Hours Sepsis New/Unexplained Change in Mental Status Sepsis Action Taken by Nursing 05/17/25 13:00 05/17/25 14:57 Temperature 37.7 C H Temperature Source Oral Pulse Rate Pulse Rate [Apical] 99 H 91 H Pulse Rhythm [Apical] Regular Respiratory Rate 18 16 Respiratory Effort / Characteristics Respiratory Depth Normal Respiratory Pattern Blood Pressure Blood Pressure [Right Arm] 145/98 H 140/93 Blood Pressure Mean Blood Pressure Mean [Right Arm] 113 108 Blood Pressure Position Pulse Oximetry 98 93 Oxygen Delivery Method Room Air Room Air Sepsis Recent Fever Within 48 Hours Sepsis New/Unexplained Change in Mental Status Sepsis Action Taken by Nursing VITAL SIGNS - Vital signs and nursing notes were reviewed. Tachycardic, otherwise stable and afebrile. GENERAL - 34-year-old male appearing his stated age who is in no acute distress. Communicates well with provider and answers questions appropriately. SKIN - Without rashes. HEAD - NC/AT. EYES - PERRL with EOMI bilaterally. Sclera anicteric. EARS - No deformities of external structures noted on gross examination bilaterally. External auditory canals without discharge or otorrhea. Tympanic membranes pearly watt without retraction or bulging. No fluid or purulent material visualized behind the TM. Handle of malleus, umbo, cone of light, pars tensa/flaccid all easily visualized. NOSE - Midline and without cyanosis. No epistaxis or purulent drainage noted. Septum midline without deviation or septal hematoma noted. MOUTH/OROPHARYNX - Without perioral cyanosis. Buccal mucosa pink and moist and without leukoplakia. Tongue midline with equal elevation of palate bilaterally. No tonsillar hypertrophy, erythema, or exudates noted. Good dentition noted. NECK - Neck with FROM. Supple to palpation. No lymphadenopathy noted. No nuchal rigidity. LUNGS - Chest wall symmetric without accessory muscle use, intercostals retractions, or central cyanosis. Normal vesicular breath sounds CTA B/L. No wheezes, rales, or rhonchi appreciated. CARDIAC - RRR with S1/S2. No murmur, rubs, or gallops appreciated. ABDOMEN - Abdominal contour normal without pulsations or visible masses. BS normoactive all four quadrants. No tenderness, palpable masses, hepatosplenomegaly, or ascites noted. MSKthere is no reproducible tenderness to palpation overlying the paraspinous musculature or C, T or L-spine. EXTREMITIES - No clubbing or peripheral cyanosis. +5/5 strength noted in UE/LE bilaterally. NEUROLOGIC - Cranial nerves II through XII grossly intact. PSYCH -alert, oriented and pleasant on exam Course Administered Medications Acetaminophen (Acetaminophen 325 Mg Tab) 650 mg PO Q4H PRN PRN Reason: pain/fever Stop: 06/16/25 16:49 Last Admin: 05/17/25 17:32 Dose: 650 mg Documented By: VILLA Docusate Sodium (Docusate Sodium 100 Mg Cap) 100 mg PO BID [facility] Stop: 06/16/25 20:59 Last Admin: 05/17/25 21:25 Dose: Not Given Documented By: KODI Sodium Chloride (Nss) 1,000 mls @ 125 mls/hr IV .Q8H [facility] Stop: 05/18/25 08:49 Last Admin: 05/17/25 17:33 Dose: 125 mls/hr Documented By: VILLA Miscellaneous (Remove Lidoderm Patch) 1 each N/A DAILY@2100 [facility] Stop: 06/16/25 20:59 Last Admin: 05/17/25 21:25 Dose: 1 each Documented By: KODI Morphine Sulfate (Morphine Sulfate 4 Mg/Ml 1 Ml Carp\\Vial) 4 mg IV Q4H PRN PRN Reason: Severe Pain (Scale 7, 8, 9,10) Stop: 05/31/25 16:49 Last Admin: 05/17/25 19:52 Dose: 4 mg Documented By: KODI Oxycodone HCl (Oxycodone Hcl Ir 5 Mg Tab (Immediate Release)) 5 mg PO Q4H PRN PRN Reason: Severe Pain (Scale 7, 8, 9,10) Stop: 05/31/25 16:49 Last Admin: 05/17/25 21:25 Dose: 5 mg Documented By: Admin: 05/17/25 17:25 Dose: 5 mg Documented By: VILLA Discontinued Medications Dexamethasone Sodium Phosphate (DexamethasonePf 10 Mg/Ml Vial) 10 mg IV NOW ONE Stop: 05/17/25 12:44 Last Admin: 05/17/25 12:48 Dose: 10 mg Documented By: LUKE Doxycycline Hyclate (Doxycycline Hyclate 100 Mg Cap) 100 mg PO NOW STA Stop: 05/17/25 12:22 Last Admin: 05/17/25 13:19 Dose: Not Given Documented By: LUKE Hydromorphone HCl (Hydromorphone Inj 0.5 Mg/0.5 Ml Syr) 0.5 mg IV NOW STA Stop: 05/17/25 10:53 Last Admin: 05/17/25 11:09 Dose: 0.5 mg Documented By: LUKE Hydromorphone HCl (Hydromorphone Inj 0.5 Mg/0.5 Ml Syr) 0.5 mg IV NOW STA Stop: 05/17/25 13:46 Last Admin: 05/17/25 13:50 Dose: 0.5 mg Documented By: LUKE Hydromorphone HCl (Hydromorphone Inj 0.5 Mg/0.5 Ml Syr) 0.5 mg IV NOW STA Stop: 05/17/25 15:04 Last Admin: 05/17/25 15:32 Dose: 0.5 mg Documented By: LUKE Sodium Chloride (Nss) 1,000 mls @ 999 mls/hr IV .Q1H1M ONE Stop: 05/17/25 09:27 Last Infusion: 05/17/25 09:44 Dose: Infused Documented By: Admin: 05/17/25 08:41 Dose: 999 mls/hr Documented By: GIOVANNA Ceftriaxone Sodium (Rocephin) 2,000 mg in 50 mls @ 100 mls/hr IV NOW STA Stop: 05/17/25 12:50 Last Infusion: 05/17/25 13:22 Dose: Infused Documented By: Admin: 05/17/25 12:53 Dose: 100 mls/hr Documented By: LUKE Doxycycline Hyclate 100 mg/ (Dextrose) 100 mls @ 50 mls/hr IV NOW STA Stop: 05/17/25 14:21 Last Infusion: 05/17/25 15:33 Dose: Infused Documented By: Admin: 05/17/25 13:19 Dose: 50 mls/hr Documented By: LUKE Ioversol (Optiray 320 125ml) 118 ml IV ONCE ONE Stop: 05/17/25 11:27 Last Admin: 05/17/25 11:26 Dose: 118 ml Documented By: CINDI Ketorolac Tromethamine (Ketorolac Tromethamine 15 Mg/Ml Vial) 10 mg IV NOW ONE Stop: 05/17/25 09:50 Last Admin: 05/17/25 09:56 Dose: 10 mg Documented By: GIOVANNA Lidocaine (Lidocaine 5% 1 Patch) 1 patch TD NOW STA Stop: 05/17/25 10:53 Last Admin: 05/17/25 11:11 Dose: 1 patch Documented By: LUKE Ondansetron HCl (Ondansetron Inj 2 Mg/Ml 2 Ml Vial) 4 mg IV NOW STA Stop: 05/17/25 10:53 Last Admin: 05/17/25 11:08 Dose: 4 mg Documented By: LUKE Medical Decision Making Laboratory Data 05/17/25 08:16 05/17/25 08:16 Lab Results 05/17/25 05/17/25 05/17/25 Range/Units 08:16 08:46 08:47 WBC 4.58 L (4.8-10.8) K/ul RBC 6.61 H (4.70-6.10) M/uL Hgb 14.8 (14.0-18.0) g/dl Hct 45.2 (42.0-52.0) % MCV 68.4 L (80.0-100.0) fL MCH 22.4 L (25.0-34.0) pg MCHC 32.7 (32.0-36.0) g/dL RDW Std Deviation 34.5 L (36.4-46.3) fL RDW Coeff of Ez 15.5 H (11.5-14.5) % Plt Count 174 (130-400) K/uL MPV 10.3 (9.4-12.4) fL Immature Gran % (Auto) 0.4 % Neut % (Auto) 71.5 % Lymph % (Auto) 11.6 % [place] % (Auto) 15.1 % Eos % (Auto) 0.7 % Baso % (Auto) 0.7 % Neut # (Auto) 3.28 (1.40-6.50) K/uL Lymph # (Auto) 0.53 L (1.20-3.40) K/uL [place] # (Auto) 0.69 H (0.11-0.59) K/uL Eos # (Auto) 0.03 (0.00-0.50) K/uL Baso # (Auto) 0.03 (0.00-0.20) K/uL Immature Gran # (Auto) 0.02 (0.01-0.20) K/uL Microcytosis Present PT 10.5 (9.0-12.0) Seconds INR 1.0 (0.9-1.1) APTT 33 H (21-31) Seconds PTT Ratio 1.2 Sodium 135 L (136-145) mmol/L Potassium 3.9 (3.5-5.1) mmol/L Chloride 104 (98-107) mmol/L Carbon Dioxide 25 (21-32) mmol/L Anion Gap 6 (3-11) BUN 11 (6-23) mg/dl Creatinine 1.16 (0.6-1.4) mg/dl Est Cr Clr Drug Dosing 104.5 ml/min eGFR 84.76 BUN/Creatinine Ratio 9.5 L (10-20) Glucose 156 H (70-99(Fasting)) mg/dl Lactate 1.0 (0.4-2.0) mmol/L Calcium 9.0 (8.6-10.3) mg/dl Magnesium 1.9 (1.7-2.4) mg/dl Total Bilirubin 0.4 (0.2-1.0) mg/dl AST 23 (13-39) U/L ALT 23 (7-52) U/L Alkaline Phosphatase 86 (34-104) U/L Total Creatine Kinase 84 (30-223) U/L Troponin I High Sens 16.9 (0-20) pg/ml Total Protein 7.2 (6.0-8.3) gm/dl Albumin 4.3 (3.4-5.0) gm/dl Globulin 2.9 (2.5-4.0) gm/dl Albumin/Globulin Ratio 1.5 (0.9-2) Lipase 15 (11-82) U/L Procalcitonin 0.27 (0-0.5) ng/ml TSH 1.232 (0.300-4.500) uIu/ml Urine Color Urine Appearance (Clear) Urine pH (4.5-7.5) Ur Specific [place] (1.000-1.030) Urine Protein (Negative) Urine Glucose (UA) (Negative) Urine Ketones (Negative) Urine Blood (Negative) Urine Nitrite (Negative) Urine Bilirubin (Negative) Urine Urobilinogen (Negative) Ur Leukocyte Esterase (Negative) Urine Comment Adenovirus (PCR) Not Detected (NotDetected) Anaplasma Smear See Comment Babesia Smear See Comment B. pertussis DNA (PCR) Not Detected (NotDetected) B.parapertussis DNA PCR Not Detected (NotDetected) Lyme Disease Screen Negative (Negative) C. pneumoniae DNA (PCR) Not Detected (NotDetected) Coronavirus OC43 (PCR) Not Detected (NotDetected) Coronavirus HKU1 (PCR) Not Detected (NotDetected) Coronavirus 229E (PCR) Not Detected (NotDetected) SARS-CoV-2 (PCR) Not Detected (NotDetected) Coronavirus NL63 (PCR) Not Detected (NotDetected) Human Metapneumovir PCR Not Detected (NotDetected) Influenza Type A (PCR) Not Detected (NotDetected) Influenza Type B (PCR) Not Detected (NotDetected) M. pneumoniae (PCR) Not Detected (NotDetected) Parainfluenza 1 (PCR) Not Detected (NotDetected) Parainfluenza 2 (PCR) Not Detected (NotDetected) Parainfluenza 3 (PCR) Not Detected (NotDetected) Parainfluenza 4 (PCR) Not Detected (NotDetected) RSV (PCR) Not Detected (NotDetected) Entero/Rhino (PCR) Not Detected (NotDetected) 05/17/25 Range/Units 10:10 WBC (4.8-10.8) K/ul RBC (4.70-6.10) M/uL Hgb (14.0-18.0) g/dl Hct (42.0-52.0) % MCV (80.0-100.0) fL MCH (25.0-34.0) pg MCHC (32.0-36.0) g/dL RDW Std Deviation (36.4-46.3) fL RDW Coeff of Ez (11.5-14.5) % Plt Count (130-400) K/uL MPV (9.4-12.4) fL Immature Gran % (Auto) % Neut % (Auto) % Lymph % (Auto) % [place] % (Auto) % Eos % (Auto) % Baso % (Auto) % Neut # (Auto) (1.40-6.50) K/uL Lymph # (Auto) (1.20-3.40) K/uL [place] # (Auto) (0.11-0.59) K/uL Eos # (Auto) (0.00-0.50) K/uL Baso # (Auto) (0.00-0.20) K/uL Immature Gran # (Auto) (0.01-0.20) K/uL Microcytosis PT (9.0-12.0) Seconds INR (0.9-1.1) APTT (21-31) Seconds PTT Ratio Sodium (136-145) mmol/L Potassium (3.5-5.1) mmol/L Chloride (98-107) mmol/L Carbon Dioxide (21-32) mmol/L Anion Gap (3-11) BUN (6-23) mg/dl Creatinine (0.6-1.4) mg/dl Est Cr Clr Drug Dosing ml/min eGFR BUN/Creatinine Ratio (10-20) Glucose (70-99(Fasting)) mg/dl Lactate (0.4-2.0) mmol/L Calcium (8.6-10.3) mg/dl Magnesium (1.7-2.4) mg/dl Total Bilirubin (0.2-1.0) mg/dl AST (13-39) U/L ALT (7-52) U/L Alkaline Phosphatase (34-104) U/L Total Creatine Kinase (30-223) U/L Troponin I High Sens (0-20) pg/ml Total Protein (6.0-8.3) gm/dl Albumin (3.4-5.0) gm/dl Globulin (2.5-4.0) gm/dl Albumin/Globulin Ratio (0.9-2) Lipase (11-82) U/L Procalcitonin (0-0.5) ng/ml TSH (0.300-4.500) uIu/ml Urine Color Yellow Urine Appearance Clear (Clear) Urine pH 6.5 (4.5-7.5) Ur Specific [place] 1.014 (1.000-1.030) Urine Protein Negative (Negative) Urine Glucose (UA) Negative (Negative) Urine Ketones Negative (Negative) Urine Blood Negative (Negative) Urine Nitrite Negative (Negative) Urine Bilirubin Negative (Negative) Urine Urobilinogen Negative (Negative) Ur Leukocyte Esterase Negative (Negative) Urine Comment Adenovirus (PCR) (NotDetected) Anaplasma Smear Babesia Smear B. pertussis DNA (PCR) (NotDetected) B.parapertussis DNA PCR (NotDetected) Lyme Disease Screen (Negative) C. pneumoniae DNA (PCR) (NotDetected) Coronavirus OC43 (PCR) (NotDetected) Coronavirus HKU1 (PCR) (NotDetected) Coronavirus 229E (PCR) (NotDetected) SARS-CoV-2 (PCR) (NotDetected) Coronavirus NL63 (PCR) (NotDetected) Human Metapneumovir PCR (NotDetected) Influenza Type A (PCR) (NotDetected) Influenza Type B (PCR) (NotDetected) M. pneumoniae (PCR) (NotDetected) Parainfluenza 1 (PCR) (NotDetected) Parainfluenza 2 (PCR) (NotDetected) Parainfluenza 3 (PCR) (NotDetected) Parainfluenza 4 (PCR) (NotDetected) RSV (PCR) (NotDetected) Entero/Rhino (PCR) (NotDetected) Imaging Data Radiologist's Impression: Abdomen/Pelvis CT 05/17/25 10:[address] WITH IV CONTRAST HISTORY: Acute low back and lower abdomen with fever and chills. back pain, tachycardia, illness TECHNIQUE: Multiaxial CT images of the abdomen and pelvis were performed following the IV administration of Optiray, A dose lowering technique was utilized adhering to the principles of ALARA. COMPARISON STUDY: None. FINDINGS: Mild linear subsegmental bibasilar atelectasis. Trace perisplenic. The liver, spleen, gallbladder, pancreas, kidneys, and adrenal glands are within normal limits. No bowel wall thickening or obstruction. Normal appendix. Wall thickening of the urinary bladder with partial distention. Small posterior annular disc bulge at L5-S1 causes at least mild bilateral foraminal narrowing. No suspicious lytic or blastic osseous lesions. IMPRESSION: 1. No acute intra-abdominal or intrapelvic abnormality. 2. Normal appendix. ACT 112: Negative or not required by law. The above report was generated using voice recognition software. It may contain grammatical, syntax or spelling errors. Electronically signed by: Song Jimenez M.D. 05/17/2025 11:48 AM Chest CTA 05/17/25 10:52 CT angio chest PE protocol CT DOSE: 2265.65 mGy.cm HISTORY: back pain, tachycardia, illness. TECHNIQUE: Multiple CTA images of the chest were obtained after the intravenous administration of 120 ml Optiray. Coronal and sagittal MIPS were obtained from the axial data set and were submitted for review. All measurements were obtained according to NASCET criteria. A dose lowering technique was utilized adhering to the principles of ALARA. COMPARISON STUDY: None FINDINGS: There is mild dependent atelectasis in the lung bases. There is no other pulmonary consolidation or pleural effusion. No pneumothorax. No thoracic aortic aneurysm or dissection. No pulmonary embolism. No pericardial effusion. No enlarged adenopathy. No acute osseous findings. IMPRESSION: No pulmonary embolism seen. ACT 112: Negative or not required by law. The above report was generated using voice recognition software. It may contain grammatical, syntax or spelling errors. Electronically signed by: Chris Montgomery M.D. 05/17/2025 11:38 AM MDM Narrative Patient was seen and evaluated as above in room C5. Review was performed of nursing notes and vital signs. I did review pertinent previous visits and patient history. After obtaining a thorough history and physical examination the above work up was performed. Please see HPI for full details. Patient presents today for assessment of back pain, shoulder pain, fevers, chills and feeling unwell. Options of care were discussed with the patient. IV access was established. Labs were drawn. EKG per my interpretation reveals sinus tachycardia at a rate of 112 bpm. QTc 428. QRS 88. No ST elevation on this rhythm tracing. Patient tachycardic around 120bpm. IV fluids ordered. Chest x-ray per my interpretation negative for acute process. I reviewed the radiology report is as above as well revealing no acute findings. Patient was medicated with IV fluids, IV analgesia and continues with low back pain. It is throughout the low and mid back area. It is not consistent with that of lumbar radiculopathy. The patient denies any trauma or injury. He denies any IV drug use. No history of L-spine surgeries. Labs reveal leukopenia 4.58 which may be secondary to viral process versus tickborne illness such as anaplasmosis among other etiologies. There is no concerning anemia. There is mild hyponatremia at 135, could also be seen in the setting of anaplasmosis versus multiple other etiologies. There is no evidence of kidney or liver failure. Hyperglycemia 156. Troponin negative. Lipase normal. Procalcitonin detectable 0.27 but within normal range. TSH within normal limits. Lactate normal making sepsis less likely. Urinalysis does not suggest infection. Bio fire panel negative. Tickborne testing pending. Chest x-ray per my interpretation negative for acute process. With multiple analgesics given here, patient continued with back pain. Further assessment via imaging was performed to include CTA of the chest and abdomen/pelvis with IV contrast. Results as above. These were essentially negative. I did order empiric IV Rocephin plus IV doxycycline for empiric tickborne coverage. I did consult the hospitalist service. Initial consideration was a trial of IV steroids and potential for discharge home if improvement. However, the patient continued with low back pain to a point where simple movements were quite painful. He does not have any neurovascular deficits on examination. I do not suspect cauda equina syndrome. I reviewed multiple options with the patient. At this time we will proceed with inpatient management. Blood cultures pending at this time among other tickborne tests. Please refer to further documentation regarding his stay. GCS: 15 In the evaluation and treatment of this patient the following differential diagnoses were entertained: Viral process, tickborne illness, meningitis, encephalitis, epidural abscess, among others Impression & Plan SIRS (systemic inflammatory response syndrome), Leukopenia, Hyponatremia, Back pain Discharge Plan Visit Data Chief Complaint: Illness Stated Complaint: BACK,SHOULDER,HEAD PAIN,CHILLS,FEVER ED Provider: Mack Xiao ED Midlevel Provider: Montez Kraft Discharge Problem: SIRS (systemic inflammatory response syndrome), Leukopenia, Hyponatremia, Back pain Patient Disposition: Admitted As Inpatient Condition: Good Discharge Instructions Interventions: ED Discharge Assessment Last Done: 05/17/25 16:22
[2025-05-17] MEDS: SODIUM CHLORIDE 0.9% 1,000 ML IV ONE (08:41)
--- NOTE | 2025-05-17 08:45 | XRay Report ---
XR chest 1V portable CLINICAL HISTORY: fever, chills, back pain COMPARISON STUDY: 10/05/2021 FINDINGS: Heart size and pulmonary vasculature are normal. No consolidation or pleural effusion. No p neumothorax. IMPRESSION: No acute findings. ACT 112: Negative or not required by law. Electronically signed by: Chris Montgomery M.D. 05/17/2025 8:44 AM
[2025-05-17 08:46] LABS: Hematocrit (blood only) 45.2 % (42.0-52.0); Hemoglobin 14.8 g/dl (14.0-18.0); Mean Corpuscular Hemoglobin 22.4 pg (25.0-34.0); Mean Corpuscular Volume 68.4 fL (80.0-100.0); RDW Standard Deviation 34.5 fL (36.4-46.3); Red Blood Count 6.61 M/uL (4.70-6.10); White Blood Count 4.58 K/ul (4.8-10.8)
[2025-05-17 09:10] LABS: Alanine Aminotransferase 23.0 U/L (7-52); Albumin Globulin Ratio 1.5 (0.9-2); Alkaline Phosphatase 86.0 U/L (34-104); Anion Gap 6.0 (3-11); Bilirubin,Total 0.4 mg/dl (0.2-1.0); Blood Urea Nitrogen 11.0 mg/dl (6-23); Calcium 9.0 mg/dl (8.6-10.3); Carbon Dioxide 25.0 mmol/L (21-32); Chloride 104.0 mmol/L (98-107); Creatinine Clr Calc Pharmacy 104.5 ml/min; Globulin 2.9 gm/dl (2.5-4.0); Glucose 156.0 mg/dl (70-99(Fasting)); Lipase 15.0 U/L (11-82); Magnesium 1.9 mg/dl (1.7-2.4); Potassium 3.9 mmol/L (3.5-5.1); Sodium 135.0 mmol/L (136-145); Total Protein 7.2 gm/dl (6.0-8.3)
[2025-05-17 09:12] LABS: Procalcitonin 0.27 ng/ml (0-0.5)
[2025-05-17 09:23] LABS: INR 1.0 (0.9-1.1); Partial Thromboplastin Time 33 Seconds (21-31); Prothrombin Time 10.5 Seconds (9.0-12.0)
[2025-05-17 09:25] LABS: Thyroid Stimulating Hormone 1.232 uIu/ml (0.300-4.500)
[2025-05-17 09:37] LABS: Lyme Screen Rflx Confirmation Negative (Negative)
[2025-05-17 09:38] LABS: Platelet Count 174 K/uL (130-400)
[2025-05-17 09:40] LABS: Microcytosis Present
[2025-05-17 09:51] LABS: Immature Granulocytes # (auto) 0.02 K/uL (0.01-0.20); Immature Granulocytes % (auto) 0.4 %
[2025-05-17 09:51] LABS: Chlamydia pneumoniae PCR Not Detected (NotDetected); Coronavirus 229E PCR Not Detected (NotDetected); Coronavirus CoV-2 (COVID19)PCR Not Detected (NotDetected); Coronavirus HKU1 PCR Not Detected (NotDetected); Coronavirus NL63 PCR Not Detected (NotDetected); Coronavirus OC43PCR Not Detected (NotDetected); Human Metapneumovirus PCR Not Detected (NotDetected); Parainfluenza Virus 1 PCR Not Detected (NotDetected); Parainfluenza Virus 2 PCR Not Detected (NotDetected); Parainfluenza Virus 3 PCR Not Detected (NotDetected); Parainfluenza Virus 4 PCR Not Detected (NotDetected); Respiratory Syncytial VirusPCR Not Detected (NotDetected); Rhinovirus/Enterovirus PCR Not Detected (NotDetected)
[2025-05-17] MEDS: KETOROLAC TROMETHAMINE 15 MG/ML VIAL IV ONE (09:56)
[2025-05-17 10:22] LABS: Appearance Urine Clear (Clear); Glucose Urine UA Negative (Negative)
[2025-05-17] MEDS: ONDANSETRON INJ 2 MG/ML 2 ML VIAL IV STA (11:08)
[2025-05-17] MEDS: HYDROmorphone INJ 0.5 MG/0.5 ML SYR IV STA ×3 (11:09→15:32)
[2025-05-17] MEDS: LIDOCAINE 5% 1 PATCH TD STA (11:11)
[2025-05-17] MEDS: OPTIRAY 320 125ml IV ONE (11:26)
--- NOTE | 2025-05-17 11:40 | CT Scan Report ---
CT angio chest PE protocol CT DOSE: 2265.65 mGy.cm HISTORY: back pain, tachycardia, illness. TECHNIQUE: Multiple CTA images of the chest were obtained after the intravenous administration of 120 ml Optiray. Coronal and sagittal MIPS were obtained from the axial data set and were submitted for review. All measurements were obtained according to NASCET criteria. A dose lowering technique was u tilized adhering to the principles of ALARA. COMPARISON STUDY: None FINDINGS: There is mild dependent atelectasis in the lung bases. There is no other pulmonary consolid ation or pleural effusion. No pneumothorax. No thoracic aortic aneurysm or dissection. No pulmonary e mbolism. No pericardial effusion. No enlarged adenopathy. No acute osseous findings. IMPRESSION: No pulmonary embolism seen. ACT 112: Negative or not required by law. The above report was generated using voice recognition software. It may contain grammatical, syntax o r spelling errors. Electronically signed by: Chris Montgomery M.D. 05/17/2025 11:38 AM
--- NOTE | 2025-05-17 11:49 | CT Scan Report ---
ABDOMEN AND PELVIS CT WITH IV CONTRAST HISTORY: Acute low back and lower abdomen with fever and chills. back pain, tachycardia, illness TECHNIQUE: Multiaxial CT images of the abdomen and pelvis were performed following the IV administrat ion of Optiray, A dose lowering technique was utilized adhering to the principles of ALARA. COMPARISON STUDY: None. FINDINGS: Mild linear subsegmental bibasilar atelectasis. Trace perisplenic. The liver, spleen, gallb ladder, pancreas, kidneys, and adrenal glands are within normal limits. No bowel wall thickening or o bstruction. Normal appendix. Wall thickening of the urinary bladder with partial distention. Small po sterior annular disc bulge at L5-S1 causes at least mild bilateral foraminal narrowing. No suspicious lytic or blastic osseous lesions. IMPRESSION: 1. No acute intra-abdominal or intrapelvic abnormality. 2. Normal appendix. ACT 112: Negative or not required by law. The above report was generated using voice recognition software. It may contain grammatical, syntax o r spelling errors. Electronically signed by: Song Jimenez M.D. 05/17/2025 11:48 AM
[2025-05-17] MEDS: dexAMETHasone**PF** 10 MG/ML VIAL IV ONE (12:48)
[2025-05-17 12:51] LABS: Creatine Kinase 84.0 U/L (30-223)
[2025-05-17] MEDS: cefTRIAXone SODIUM 2,000 MG/50 ML BAG IV STA (12:53)
[2025-05-17] MEDS: DOXYCYCLINE HYCLATE 100 MG CAP PO STA (13:19)
[2025-05-17] MEDS: DOXYCYCLINE HYCLATE 100 MG in DEXTROSE 5% MINI-B 100 ML IV STA (13:19)
--- NOTE | 2025-05-17 15:42 | History & Physical Report ---
Date of Service May 17, 2025 Assessment & Plan (1) Systemic viral illness: (2) SIRS (systemic inflammatory response syndrome): Plan This is a 34 yr old M who has no significant PMH who presents to ED 2/2 fever, chills, bodyaches/back ache x 4 days. He recently traveled to [place], [place] and [facility] and returned home 1 week ago. Sx started 2 days after returning home. Sx consist of fever, chills, sweats, lower back and neck pain making ambulation difficult. No family members are sick. He denies any known tick bite, rashes or insect bites. They stayed in a cabin while in [place]. He has never felt like this before. In ED pt met criteria for SIRS in setting of tachycardia and fever (borderline but elevated. Minimal exertion results in HR in 120s-130s. CTA Chest: Negative for PE CT abdomen/Pelvis: no acute pathology - Small annular posterior disc bulge noted L5-S1 (pts sx not consistent with this distribution.) Blood Cultures obtained and pending. Respiratory/Biofire negative. Lyme screen Negative Possbile tick borne illness Anaplasma, Erlichia and Babesiosis pending Will add RMSF serologies given recent vist to [place] will empirically cover with IV rocephin 2g for now until infectious work up complete PT for back pain APAP, IV toradol for moderate pain, Oral oxy IR for severe pain or IV morphine for severe pain 2L of IVF Repeat CBC, CMP, Mag A1C in am. DVT ppx: pt ambulatory FULL CODE PCP: Rakesh Thakur Dispo: admit to medical under obs for further work up Pt was seen and examined in collaboration with Dr. Sparks, please see addendum I spent a total of 60 minutes coordinating, documenting and providing care for this patient excluding time spent in the performance of separately billed services or time spent by another provider/QHP. History of Present Illness Chief Complaint: Fever, Chills, Bodyaches/back ache x 4 days. Primary Care Provider: Rakesh Thakur This is a 34 yr old M who has no significant PMH who presents to ED 2/2 fever, chills, bodyaches/back ache x 4 days. Of significance pt and his family recently traveled to [place], [place] and [facility]. They returned on Friday. No one else around him is sick. He [place] He is unaware of any tick bites/insect bites. He denies any rashes. He denies and URI sx, cough, chest pain, sob, n/v/d, abd pain. He did have 1 episode of diarrhea yesterday, but otherwise his bowels have been normal. He has tried OTC tylenol and ibuprofen w/o relief. He was to see PCP today, but opted to come to ED instead in event they would send him over here anyway. In ED work up was mostly unremarkable. He did spike a fever while in house. ED provider felt pt unsafe to return home due to inability to ambulate well and recommended admission. Pt received IV decadron and multiple rounds of pain medications w/o significant relief. Allergies Allergy/AdvReac Type Severity Reaction Status Date / Time No Known Allergies Allergy Unverified 10/05/21 00:06 Home Medications Medication Instructions Recorded Confirmed Type Tylenol 0 mg PO DIRECTED PRN Pain 05/17/25 05/17/25 History codeine 10 mg-guaifenesin 100 mg/5 0 ml PO Q6H PRN cough 05/17/25 05/17/25 History mL oral liquid ibuprofen 0 mg PO DIRECTED PRN Pain 05/17/25 05/17/25 History Past Med/Surg History Problem List (Updated 05/17/25 @ 16:05 by Rosina Platt PA-C) SIRS (systemic inflammatory response syndrome) Systemic viral illness Facial cellulitis (Acute) Flu-like symptoms (Acute) Medical History Pancytopenia DVT prophylaxis Pneumonia due to COVID-19 virus Surgical History History of surgery on wrist Social History Smoking Status: Never smoker Second Hand Exposure: No; Do You Dip or Chew Tobacco: No; Hx Alcohol Use: Yes Alcohol type: beer Hx Substance Use: Yes Preferred Language: Nepali Communication Ability: Effective Parquet Floor Layer Required: No Beliefs That Will Affect Care: None marital status: Current Living Situation: Spouse and Family Current Living Situation Comment: and 1 daughter. Other Information That Helps Us Care for You: No Feels Safe at Home: Yes Safety Concerns: Feels Safe At This Time Assistive Devices: None Review of Systems Review of Systems: All systems reviewed & are unremarkable except as noted in HPI & below Physical Exam Physical Exam: Gen: WD/WN, m, appears toxic and appears feeling unwell, flushed NAD, A&O x3 HEENT: Normocephalic, atraumatic, conjunctivae moist, sclerae anicteric, mucous membranes moist. Lung: Clear to Auscultation bilaterally, no wheezes/rales/rhonchi Heart: Regular rate, regular rhythm, no murmurs, rubs, or gallops Abdomen: Soft, NT, ND +BS x 4 Extremities: No edema, AROM x 4. pain to palpation L side of neck along with lower back paraspinal musculature, pain with cervical rom but no menigismus. Skin: Warm, no rash, negative turgor. Results & Data Results & Data Vital Signs (Past 12 Hours) Vital Signs Temp Pulse Pulse Resp BP BP Pulse Ox 05/17/25 14:57 37.7 C H 91 H 16 140/93 93 05/17/25 13:00 99 H 18 145/98 H 98 05/17/25 12:15 92 H 05/17/25 11:00 89 18 132/91 97 05/17/25 09:58 37.4 C 05/17/25 08:15 37.1 C 120 H 20 05/17/25 08:15 109 H 05/17/25 08:01 36.6 C 126 H 18 133/78 95 O2 Del Method 05/17/25 14:57 Room Air 05/17/25 13:00 Room Air 05/17/25 12:15 05/17/25 11:00 Room Air 05/17/25 09:58 05/17/25 08:15 05/17/25 08:15 05/17/25 08:01 Room Air Laboratory Results I have independently reviewed and interpreted patient's admitting labs including CBC, CMP, PTT, PT/INR, mag and troponin. Diagnostic Findings Chest X-Ray 05/17/25 08:27 XR chest 1V portable CLINICAL HISTORY: fever, chills, back pain COMPARISON STUDY: 10/05/2021 FINDINGS: Heart size and pulmonary vasculature are normal. No consolidation or pleural effusion. No pneumothorax. IMPRESSION: No acute findings. ACT 112: Negative or not required by law. Electronically signed by: Chris Montgomery M.D. 05/17/2025 8:44 AM Abdomen/Pelvis CT 05/17/25 10:[address] WITH IV CONTRAST HISTORY: Acute low back and lower abdomen with fever and chills. back pain, tachycardia, illness TECHNIQUE: Multiaxial CT images of the abdomen and pelvis were performed following the IV administration of Optiray, A dose lowering technique was utilized adhering to the principles of ALARA. COMPARISON STUDY: None. FINDINGS: Mild linear subsegmental bibasilar atelectasis. Trace perisplenic. The liver, spleen, gallbladder, pancreas, kidneys, and adrenal glands are within normal limits. No bowel wall thickening or obstruction. Normal appendix. Wall thickening of the urinary bladder with partial distention. Small posterior annular disc bulge at L5-S1 causes at least mild bilateral foraminal narrowing. No suspicious lytic or blastic osseous lesions. IMPRESSION: 1. No acute intra-abdominal or intrapelvic abnormality. 2. Normal appendix. ACT 112: Negative or not required by law. The above report was generated using voice recognition software. It may contain grammatical, syntax or spelling errors. Electronically signed by: Song Jimenez M.D. 05/17/2025 11:48 AM Chest CTA 05/17/25 10:52 CT angio chest PE protocol CT DOSE: 2265.65 mGy.cm HISTORY: back pain, tachycardia, illness. TECHNIQUE: Multiple CTA images of the chest were obtained after the intravenous administration of 120 ml Optiray. Coronal and sagittal MIPS were obtained from the axial data set and were submitted for review. All measurements were obtained according to NASCET criteria. A dose lowering technique was utilized adhering to the principles of ALARA. COMPARISON STUDY: None FINDINGS: There is mild dependent atelectasis in the lung bases. There is no other pulmonary consolidation or pleural effusion. No pneumothorax. No thoracic aortic aneurysm or dissection. No pulmonary embolism. No pericardial effusion. No enlarged adenopathy. No acute osseous findings. IMPRESSION: No pulmonary embolism seen. ACT 112: Negative or not required by law. The above report was generated using voice recognition software. It may contain grammatical, syntax or spelling errors. Electronically signed by: Chris Montgomery M.D. 05/17/2025 11:38 AM Medications Administered Medication List Discontinued Medications Dexamethasone Sodium Phosphate (DexamethasonePf 10 Mg/Ml Vial) 10 mg IV NOW ONE Stop: 05/17/25 12:44 Last Admin: 05/17/25 12:48 Dose: 10 mg Documented By: LUKE Doxycycline Hyclate (Doxycycline Hyclate 100 Mg Cap) 100 mg PO NOW STA Stop: 05/17/25 12:22 Last Admin: 05/17/25 13:19 Dose: Not Given Documented By: LUKE Hydromorphone HCl (Hydromorphone Inj 0.5 Mg/0.5 Ml Syr) 0.5 mg IV NOW STA Stop: 05/17/25 10:53 Last Admin: 05/17/25 11:09 Dose: 0.5 mg Documented By: LUKE Hydromorphone HCl (Hydromorphone Inj 0.5 Mg/0.5 Ml Syr) 0.5 mg IV NOW STA Stop: 05/17/25 13:46 Last Admin: 05/17/25 13:50 Dose: 0.5 mg Documented By: LUKE Hydromorphone HCl (Hydromorphone Inj 0.5 Mg/0.5 Ml Syr) 0.5 mg IV NOW STA Stop: 05/17/25 15:04 Last Admin: 05/17/25 15:32 Dose: 0.5 mg Documented By: LUKE Sodium Chloride (Nss) 1,000 mls @ 999 mls/hr IV .Q1H1M ONE Stop: 05/17/25 09:27 Last Infusion: 05/17/25 09:44 Dose: Infused Documented By: Admin: 05/17/25 08:41 Dose: 999 mls/hr Documented By: GIOVANNA Ceftriaxone Sodium (Rocephin) 2,000 mg in 50 mls @ 100 mls/hr IV NOW STA Stop: 05/17/25 12:50 Last Infusion: 05/17/25 13:22 Dose: Infused Documented By: Admin: 05/17/25 12:53 Dose: 100 mls/hr Documented By: LUKE Doxycycline Hyclate 100 mg/ (Dextrose) 100 mls @ 50 mls/hr IV NOW STA Stop: 05/17/25 14:21 Last Infusion: 05/17/25 15:33 Dose: Infused Documented By: Admin: 05/17/25 13:19 Dose: 50 mls/hr Documented By: LUKE Ioversol (Optiray 320 125ml) 118 ml IV ONCE ONE Stop: 05/17/25 11:27 Last Admin: 05/17/25 11:26 Dose: 118 ml Documented By: CINDI Ketorolac Tromethamine (Ketorolac Tromethamine 15 Mg/Ml Vial) 10 mg IV NOW ONE Stop: 05/17/25 09:50 Last Admin: 05/17/25 09:56 Dose: 10 mg Documented By: GIOVANNA Lidocaine (Lidocaine 5% 1 Patch) 1 patch TD NOW STA Stop: 05/17/25 10:53 Last Admin: 05/17/25 11:11 Dose: 1 patch Documented By: LUKE Ondansetron HCl (Ondansetron Inj 2 Mg/Ml 2 Ml Vial) 4 mg IV NOW STA Stop: 05/17/25 10:53 Last Admin: 05/17/25 11:08 Dose: 4 mg Documented By: LUKE Code Status & VTE Plan Code Status FULL CODE VTE Prophylaxis Plan VTE Prophylaxis will be ordered: No Reason for no VTE drug order: Treatment not indicated Supervising Physician Co-Signing Physician Notes I have seen and discussed the case with the collaborating advanced practitioner. I agree with the above H&P. I have reviewed and confirmed the patients medical history, the findings on physical examination, and the patients diagnosis and treatment plan with Lc OWUSU and agree with the information documented. In short, Mr. Reyes is a 34 yo gentleman with no past medical hx admitted for evaluation of SIRS criteria, worsening myalgias. Concern for possible tick borne process. Also with notable back pain, however, low suspicion for meningitis. Agree with empiric abx. medrol dose pack, admission to follow up tick labs and pain control. I spent a total of 25 minutes coordinating, documenting, and providing care for this patient excluding time spent in the performance of separately billed services. All of the aforementioned completed outside of collaborating with the assigned advanced practitioner for a full treatment plan. I have reviewed the advanced practitioner's documentation, and I agree with, and take responsibility for the plan of care
[2025-05-17] MEDS ORDERED: methylPREDNISolone 4 MG TAB, 6 DAY TAPER PO SCH (16:50)
[2025-05-17] MEDS ORDERED: MELATONIN 3 MG TAB PO PRN (16:50)
[2025-05-17] MEDS ORDERED: ONDANSETRON INJ 2 MG/ML 2 ML VIAL IV PRN (16:50)
[2025-05-17] MEDS ORDERED: ALUMINUM/MAGNESIUM SUSP 30 ML UDC PO PRN (16:50)
[2025-05-17] MEDS ORDERED: POLYETHYLENE (MIRALAX) 17 GM PACK PO PRN (16:50)
[2025-05-17] MEDS: ACETAMINOPHEN 325 MG TAB PO PRN (17:32)
[2025-05-17] MEDS: SODIUM CHLORIDE 0.9% 1,000 ML IV SCH (17:33)
[2025-05-17 19:21] VITALS: RESP 18
[2025-05-17] MEDS: MoRPHine SULFATE 4 MG/ML 1 ML CARP\\VIAL IV PRN (19:52)
[2025-05-17] MEDS ORDERED: REMOVE LIDODERM PATCH SCH (21:00)
[2025-05-17] MEDS: REMOVE LIDODERM PATCH SCH (21:25)
[2025-05-17] MEDS: DOCUSATE SODIUM 100 MG CAP PO SCH (21:25)
[2025-05-18] MEDS: methylPREDNISolone 4 MG TAB PO SCH ×2 (06:12→13:47)
[2025-05-18 07:42] LABS: Hematocrit (blood only) 40.9 % (42.0-52.0); Hemoglobin 13.2 g/dl (14.0-18.0); Immature Granulocytes # (auto) 0.02 K/uL (0.01-0.20); Immature Granulocytes % (auto) 0.3 %; Mean Corpuscular Hemoglobin 22.2 pg (25.0-34.0); Mean Corpuscular Volume 68.9 fL (80.0-100.0); RDW Standard Deviation 35.8 fL (36.4-46.3); Red Blood Count 5.94 M/uL (4.70-6.10); White Blood Count 6.14 K/ul (4.8-10.8)
[2025-05-18 07:58] LABS: Platelet Count 183 K/uL (130-400)
[2025-05-18 08:07] LABS: Alanine Aminotransferase 17.0 U/L (7-52); Albumin Globulin Ratio 1.4 (0.9-2); Alkaline Phosphatase 70.0 U/L (34-104); Anion Gap 4.0 (3-11); Bilirubin,Total 0.3 mg/dl (0.2-1.0); Blood Urea Nitrogen 11.0 mg/dl (6-23); Calcium 8.6 mg/dl (8.6-10.3); Carbon Dioxide 28.0 mmol/L (21-32); Chloride 106.0 mmol/L (98-107); Creatinine Clr Calc Pharmacy 121.7 ml/min; Globulin 2.7 gm/dl (2.5-4.0); Glucose 112.0 mg/dl (70-99(Fasting)); Magnesium 2.1 mg/dl (1.7-2.4); Potassium 4.7 mmol/L (3.5-5.1); Sodium 138.0 mmol/L (136-145); Total Protein 6.6 gm/dl (6.0-8.3)
[2025-05-18 08:10] LABS: Microcytosis Present
[2025-05-18 08:42] LABS: Hemoglobin A1C 6.2 % (4.5-5.6)
[2025-05-18] MEDS: KETOROLAC 30 MG/ML VIAL IV PRN (09:12)
[2025-05-18] MEDS: cefTRIAXone SODIUM 2,000 MG/50 ML BAG IV SCH (09:51)
[2025-05-18] MEDS: ADVANCED PROBIOTIC 625 MG CAPSULE PO SCH (09:52)
[2025-05-18] MEDS: LIDOCAINE 5% 1 PATCH TD SCH (09:52)
--- NOTE | 2025-05-18 14:37 | Hospitalist Progress Note ---
Date of Service May 18, 2025 Assessment & Plan (1) Low back pain: (2) Myalgia, multiple sites: (3) Fever and chills: (4) SIRS (systemic inflammatory response syndrome): Plan Pt is a 34y/o M with no significant PMHx who presented to the ED on 05/17/25 for evaluation of fevers/chills, worsening myalgias and back pain x 4 days. [facility] [place] [place] [facility] and [facility] ~[facility]wk ago. No known tick bites, rashes or insect bites; however, pt was reportedly mountain climbing and horseback riding outdoors on vacation. Sx started 2 days after returning home (stayed in cabin while in [place]). Sx consist of fevers/chills/sweats, low back pain with subsequent ambulatory dysfx, neck pain and neck stiffness. #Low back pain, myalgias #Fevers and chills #SIRS --> met criteria on admission ISO tachycardia and borderline fever Chest CTA: negative for PE, no consolidation/pleural effusion CT abd/pelvis: no acute pathology; small annular posterior disc bulge noted L5- S1 (sx not consistent with this distribution) Resp BioFire panel negative Blood cxs w/ NGTD S/p 2L IVF Low suspicion for meningitis -Neck stiffness/pain improving w/ current txs, no nuchal rigidity appreciated on exam, no reported ANDRES ? poss tickborne illness given recent travel, outdoor activities -Lyme screen negative -Babesia, Anaplasma smears w/o evidence to suggest either --> Babesia/Anaplasma DNA testing pending -Rickettsia IgG, IgM Ab pending -Continue empiric IV Rocephin for now pending above test results PT eval for low back pain; lidocaine patch application PRN IV Toradol for mod pain, po oxy IR/IV morphine for severe pain --> oxy IR providing relief per pt Medrol Dosepak on board --> see if this provides pt w/ any improvement #Anemia Slightly anemic w/ Hgb 13.2 today Check routine AM anemia panel including B12, folate #Prediabetes Hgb A1c 6.2% Outpt PCP f/u advised regarding this; lifestyle changes encouraged DVT Prophylaxis: SCDs/TEDs, pt ambulatory PCP: Rakesh Thakur, DO Disposition: Likely d/c home tomorrow pending clinical progression, tickborne serology testing Patient seen in collaboration with Dr. Newton. Please see addendum. I spent a total of 38 minutes coordinating, documenting, and providing care for this patient excluding time spent in the performance of separately billed services or time spent by another provider/QHP. This included personally reviewing all current laboratories and imaging studies, medical reconciliation, outpatient chart review and discussion with specialists. This chart was completed in part utilizing Speech Voice Recognition Software. Grammatical errors, random word insertions, pronoun errors, and incomplete sentences are an occasional consequence of this system due to software limitations, ambient noise, and hardware issues. Any formal questions or concerns about the content, text, or information contained within the body of this dictation should be directly addressed to the provider for clarification. Admission and Anticipated Discharge Date Admission Date: May 17, 2025 Supervising Physician Co-Signing Physician Notes Patient was seen and examined at bedside. Patient's was at bedside who was also updated on plan of care. Patient reported significant improvement in his fever/nausea/muscle pain. Patient reports improving appetite. Patient stated if he can go home, we discussed about waiting until blood culture is negative for 48 hours and then advised him to follow-up with final results of blood culture and tick borne serology at the PCP office within a week time upon discharge. On exam: Room air, heart/lung/abdominal examination WNL. Rest of the examination as above. Total time spent independently: 17 minutes. I have seen and examined the patient and have discussed the case with the provider above. I agree with the assessment and plan as stated. Subjective Pt seen and examined in room N388-2. Remains afebrile since yesterday evening. Feeling slightly improved from yesterday. Less neck stiffness, pain. Mid to low back pain better controlled w/ PRN oxy IR. Denies any myalgias, extremity paraesthesias or extremity weakness. Feels his ambulation has improved; mentions this was previously quite difficult 2/2 back pain. Denies any urinary/bowel habit issues. Review of Systems Review of Systems: At least ten systems reviewed and negative, except as noted in the subjective section. Physical Exam Physical Exam: General: WD/WN M, NAD, sitting up in bed eating breakfast, A&Ox3, conversing appropriately HEENT: Normocephalic, atraumatic, external ear and nose normal, oropharynx appears moist Respiratory: Normal respiratory effort, lungs CTAB, no accessory muscle use Cardiovascular: Regular rate/rhythm, normal peripheral pulses, no BLE edema Abdomen/GI: Active bowel sounds, soft, nontender to palpation in all quadrants Extremities/MSK: Extremities motor strength intact, actively moves all extremities, mild TTP along low back paraspinal muscles, no nuchal rigidity appreciated Neurologic: No overt focal deficits, CN's II-XI not formally tested but appear grossly intact bilaterally Results & Data Results & Data Vital Signs (Past 12 Hours) Vital Signs Temp Pulse Resp BP Pulse Ox O2 Del Method 05/18/25 14:34 36.7 C 64 18 122/73 96 Room Air 05/18/25 07:20 36.8 C 72 18 118/80 95 Room Air Laboratory Results Short CBC 05/18/25 Range/Units 07:20 WBC 6.14 (4.8-10.8) K/ul Hgb 13.2 L (14.0-18.0) g/dl Hct 40.9 L (42.0-52.0) % Plt Count 183 (130-400) K/uL BMP 05/18/25 07:20 Sodium 138 Potassium 4.7 D Chloride 106 Carbon Dioxide 28 BUN 11 Creatinine 1.00 Glucose 112 H Calcium 8.6 Liver Function 05/18/25 Range/Units 07:20 Total Bilirubin 0.3 (0.2-1.0) mg/dl AST 16 (13-39) U/L ALT 17 (7-52) U/L Alkaline Phosphatase 70 (34-104) U/L Albumin 3.9 (3.4-5.0) gm/dl (1) Low back pain Back pain laterality: unspecified Chronicity: unspecified Sciatica presence: unspecified whether sciatica present Qualified Code(s): M54.50 - Low back pain, unspecified
[2025-05-19] MEDS: methylPREDNISolone 4 MG TAB PO SCH (06:12)
[2025-05-19 07:43] VITALS: O2SAT 95
[2025-05-19 07:52] LABS: Hematocrit (blood only) 42.4 % (42.0-52.0); Hemoglobin 13.7 g/dl (14.0-18.0); Immature Granulocytes # (auto) 0.01 K/uL (0.01-0.20); Immature Granulocytes % (auto) 0.2 %; Mean Corpuscular Hemoglobin 22.5 pg (25.0-34.0); Mean Corpuscular Volume 69.5 fL (80.0-100.0); RDW Standard Deviation 35.8 fL (36.4-46.3); Red Blood Count 6.10 M/uL (4.70-6.10); White Blood Count 5.07 K/ul (4.8-10.8)
[2025-05-19 08:18] LABS: Alanine Aminotransferase 21.0 U/L (7-52); Albumin Globulin Ratio 1.5 (0.9-2); Alkaline Phosphatase 72.0 U/L (34-104); Anion Gap 6.0 (3-11); Bilirubin,Total 0.4 mg/dl (0.2-1.0); Blood Urea Nitrogen 16.0 mg/dl (6-23); Calcium 9.1 mg/dl (8.6-10.3); Carbon Dioxide 30.0 mmol/L (21-32); Chloride 105.0 mmol/L (98-107); Creatinine Clr Calc Pharmacy 132.2 ml/min; Globulin 2.9 gm/dl (2.5-4.0); Glucose 97.0 mg/dl (70-99(Fasting)); Iron 123.0 mcg/dl (35-175); Magnesium 2.2 mg/dl (1.7-2.4); Potassium 4.4 mmol/L (3.5-5.1); Sodium 141.0 mmol/L (136-145); Total Iron Binding Cap Calc 294.0 mcg/dl (250-450); Total Protein 7.2 gm/dl (6.0-8.3); Transferrin 210.0 mg/dl (200-360); Transferrin (FE) Percent Satur 42.0 % (20-50)
[2025-05-19 08:22] LABS: Microcytosis Present; Ovalocytes 1+; Platelet Count 197 K/uL (130-400); Polychromasia 1+
[2025-05-19 08:35] LABS: Vitamin B12 321.0 pg/ml (180-914)
[2025-05-19 08:37] LABS: Ferritin 316.9 ng/ml (8-388)
[2025-05-19 12:44] LABS: Folate (Folic Acid),Ser orPlas 12.99 ng/ml (>5.38)
--- NOTE | 2025-05-19 14:10 | Discharge Summary ---
Discharge Summary Date of Service May 19, 2025 Principal Dx & Hospital Course #1 = Principal Diagnosis (1) Low back pain: (2) Myalgia, multiple sites: (3) Fever and chills: (4) SIRS (systemic inflammatory response syndrome): Plan Pt is a 34y/o M with no significant PMHx who presented to the ED on 05/17/25 for evaluation of fevers/chills, worsening myalgias and back pain x 4 days. Recently traveled to [place], [place] and [facility] and returned home ~1wk ago. No known tick bites, rashes or insect bites; however, pt was reportedly mountain climbing and horseback riding outdoors on vacation. Sx started 2 days after returning home (stayed in cabin while in [place]). Sx consist of fevers/chills/sweats, low back pain with subsequent ambulatory dysfx, neck pain and neck stiffness. #Low back pain, myalgias #Fevers and chills #SIRS --> met criteria on admission ISO tachycardia and borderline fever Chest CTA: negative for PE, no consolidation/pleural effusion CT abd/pelvis: no acute pathology; small annular posterior disc bulge noted L5- S1 (sx not consistent with this distribution) Resp BioFire panel negative, blood cxs w/ NGTD S/p 2L IVF Low suspicion for meningitis -Neck stiffness/pain improving w/ current txs, no nuchal rigidity appreciated on exam, no reported ANDRES ? poss tickborne illness given recent travel, outdoor activities -Lyme screen negative -Babesia, Anaplasma smears w/o evidence to suggest either --> Babesia/A. phagocytophilum DNA testing pending on d/c -Rickettsia IgG, IgM Ab pending on d/c Empirically on IV Rocephin while inpt --> will d/c on po doxycycline to complete full 10-day ABX course pending above serology results Complete Medrol Dosepak on d/c; home lidocaine patch application encouraged, frequent ambulation #Anemia Mild anemia noted Anemia panel unremarkable, including B12/folate; continue routine CBC monitoring as an outpt #Prediabetes Hgb A1c 6.2% Outpt PCP f/u advised regarding this; lifestyle changes encouraged Disposition: Pt is being d/c'd home in good condition w/ close PCP follow-up next week Patient seen in collaboration with Dr. Newton. Please see addendum. I spent a total of 50 minutes coordinating, documenting, and providing care for this patient excluding time spent in the performance of separately billed services or time spent by another provider/QHP. This included personally reviewing all current laboratories and imaging studies, medical reconciliation, outpatient chart review and discussion with specialists. This chart was completed in part utilizing Speech Voice Recognition Software. Grammatical errors, random word insertions, pronoun errors, and incomplete sentences are an occasional consequence of this system due to software limitations, ambient noise, and hardware issues. Any formal questions or concerns about the content, text, or information contained within the body of this dictation should be directly addressed to the provider for clarification. Notes For Next Care Provider Follow-up [place] spotted fever serologies, Babesia/A. phagocytophilum DNA testing Medication Changes From Visit Doxycycline 100mg BID x 7 days Medrol Dosepak Admission HPI Per Admitting Provider This is a 34 yr old M who has no significant PMH who presents to ED 2/2 fever, chills, bodyaches/back ache x 4 days. Of significance pt and his family recently traveled to [place], [place] and [facility]. They returned on Friday. No one else around him is sick. He states they stayed in a cabin and he was in the [facility]. He is unaware of any tick bites/insect bites. He denies any rashes. He denies and URI sx, cough, chest pain, sob, n/v/d, abd pain. He did have 1 episode of diarrhea yesterday, but otherwise his bowels have been normal. He has tried OTC tylenol and ibuprofen w/o relief. He was to see PCP today, but opted to come to ED instead in event they would send him over here anyway. In ED work up was mostly unremarkable. He did spike a fever while in house. ED provider felt pt unsafe to return home due to inability to ambulate well and recommended admission. Pt received IV decadron and multiple rounds of pain medications w/o significant relief. Admission Exam Per Admitting Provider Gen: WD/WN, m, appears toxic and appears feeling unwell, flushed NAD, A&O x3 HEENT: Normocephalic, atraumatic, conjunctivae moist, sclerae anicteric, mucous membranes moist. Lung: Clear to Auscultation bilaterally, no wheezes/rales/rhonchi Heart: Regular rate, regular rhythm, no murmurs, rubs, or gallops Abdomen: Soft, NT, ND +BS x 4 Extremities: No edema, AROM x 4. pain to palpation L side of neck along with lower back paraspinal musculature, pain with cervical rom but no menigismus. Skin: Warm, no rash, negative turgor. Discharge Exam General: WD/WN M, NAD, sitting up in bed, A&Ox3, conversing appropriately, at bedside HEENT: Normocephalic, atraumatic, external ear and nose normal, oropharynx appears moist Respiratory: Normal respiratory effort, lungs CTAB, no accessory muscle use Cardiovascular: Regular rate/rhythm, normal peripheral pulses, no BLE edema Abdomen/GI: Active bowel sounds, soft, nontender to palpation in all quadrants Extremities/MSK: Extremities motor strength intact, actively moves all extremities, mild TTP along low back paraspinal muscles Neurologic: No overt focal deficits, CN's II-XI not formally tested but appear grossly intact bilaterally Updated Medication List Medication Instructions Recorded Confirmed Type Tylenol 0 mg PO DIRECTED PRN Pain 05/17/25 05/17/25 History codeine 10 mg-guaifenesin 100 mg/5 0 ml PO Q6H PRN cough 05/17/25 05/17/25 History mL oral liquid ibuprofen 0 mg PO DIRECTED PRN Pain 05/17/25 05/17/25 History doxycycline hyclate 100 mg capsule 100 mg PO BID 7 days #14 caps 05/19/25 Rx methylprednisolone 4 mg tablet See Rx Instructions .Route 05/19/25 Rx .COMPLEX #13 tabs oxycodone 5 mg tablet 5 mg PO Q8H PRN pain (scale score 05/19/25 Rx 7-10) #10 tabs Hospital Stay Data Consultations 05/17/25 14:52 ED Decision to Admit Stat Diagnostic Imagining Performed 05/17/25 10:52 CT abd pelvis IV con only Stat CT angio chest PE protocol Stat Pending Results Patient Have Any Pending Studies at Discharge: Yes (RMSF serologies, Ehrlichia DNA PCR, Babesia DNA PCR, A. phagocytophilum DNA) Discharge Instructions Given to Patient (Per Discharging Provider) awilda Rodriguez were placed under inpatient observation at [facility] for further evaluation of fevers/chills, worsening myalgias (muscle pain/aches) and low back pain after recent travel to [place]. There is concern that your symptoms may have been caused by a tickborne illness or viral systemic illness. You tested negative for Lyme disease. Your serology testing for [place] spotted fever is still pending at time of discharge. You are being discharged on an oral course of doxycycline x 7 days with the next dose being TOMORROW MORNING. This antibiotic will cover for any potential tickborne illness such as [place] spotted fever. You are also being discharged on a methylprednisolone (steroid) taper course for your back pain which was started during your hospitalization. Please continue to take this medication as prescribed and in its entirety. The above prescriptions have been sent to [facility]. RECOMMENDATIONS FOR FOLLOW-UP Please attend your PCP hospital discharge follow-up appointment as outlined below: Date & Time: 05/26/2025 @ 9:40 AM Provider:Enrique Finney MD Location: [facility] Seek medical attention if you have: * temperature above 101F * chest pain or trouble breathing * abdominal pain, nausea, vomiting * diarrhea, dark stools or bloody stools * any unanswered questions or concerns Call 911 if symptoms are severe. Please take good care of yourself. It has been a pleasure taking care of you. If you have any questions regarding your recent hospitalization please contact [facility] and request [facility] @ [phone]. Total Time Total Time Spent Total Time Spent (In Minutes): 60 Supervising Physician Co-Signing Physician Notes Patient was seen and examined at bedside. Patient reported significant improvement and feels back to baseline. Pt educated to f/u on final results of tick borne serology and blood culture results with PCP office within a week time. He was also advised to take 8 ounces of water with doxycycline and stay upright for at least half an hour after taking doxycycline and utilizing sunscreen lotion while out in the sun. On exam: Room air, heart/lung/abdominal examination WNL. Rest of the examination as above. Total time spent independently: 18 minutes. I have seen and examined the patient and have discussed the case with the provider above. I agree with the assessment and plan as stated.
[2025-05-19 14:32] VITALS: BP 131/95; PULSE 75; TEMP 98.2
[2025-05-19] MEDS ORDERED: methylPREDNISolone 4 MG TAB PO SCH (21:00)
[2025-05-20] MEDS ORDERED: methylPREDNISolone 4 MG TAB PO SCH (07:00)
[2025-05-21] MEDS ORDERED: methylPREDNISolone 4 MG TAB PO SCH (07:00)
--- NOTE | 2025-05-21 07:04 | Electrocardiogram Report ---
Test Reason : Blood Pressure : */* mmHG Vent. Rate : 112 BPM Atrial Rate : 112 BPM P-R Int : 126 ms QRS Dur : 88 ms QT Int : 314 ms P-R-T Axes : 48 56 34 degrees QTcB Int : 428 ms Sinus tachycardia Nonspecific T wave abnormality Abnormal ECG No previous ECGs available Confirmed by Morales Wiley ([id number]) on 05/21/2025 7:03:48 AM Referred By: REFERRED SELF Confirmed By: Morales Wiley
[2025-05-22] MEDS ORDERED: methylPREDNISolone 4 MG TAB PO SCH (07:00)
[2025-05-23] MEDS ORDERED: methylPREDNISolone 4 MG TAB PO SCH (07:00)
== END 2025-05-19 15:58 | disposition home or self-care (01) ==
LOC: ED 07:59 → 3N 07:59 → SUATTDRO 15:09 → 3N 16:22